=== PATIENT | male | born 1965 | race Caucasian/White ===

== ENCOUNTER 2017-08-23 08:49 | Observation (INO) ==
--- NOTE | 2017-08-23 09:22 | Emergency Department Note ---
[facility] [place] Clinical Impression: Left upper limb pain, Left upper extremity swelling, History of DVT (deep vein thrombosis) Disposition: Still a Patient Condition on Discharge: Fair Time of Disposition: 09:34 (To ER bed 8) Medical Decision Making - Carlos Inquiry Pt receiving controlled substance: No Vital Signs: 08/23/17 09:06 Temperature 98.2 F Temperature Source Oral Pulse Rate [Right Radial] 87 Respiratory Rate 18 Blood Pressure [Right Arm] 142/99 Blood Pressure Mean [Right Arm] 113 Blood Pressure Source [Right Arm] Automatic Cuff Blood Pressure Position [Right Arm] Sitting 02 Sat by Pulse Oximetry 99 Oxygen Delivery Method Room Air - Reevaluation(s) Time: 09:30 Reevaluation #1: Spoke to pt re: possible differentials and necessary workup. Agreeable to transfer to ER. Report called to GERALDO Armando RN. Bed 8 available. [facility] [place] - General Stated complaint: left arm swollen no accident Time Seen by Provider: 08/23/17 09:10 Mode of Arrival: Family Vehicle Source of Information: Patient Limitations: No Limitations Description of Symptoms (Recalled from Triage Doc. by RN): PT C/O PAIN AND SWELLING IN LEFT HAND SINCE TUESDAY. PT HAS HISTORY OF BLOOD CLOTS. HEENT Symptoms (Recalled from RN notes): No Resp Symptoms (Recalled from RN notes): No Skin Symptoms (Recalled from RN notes): No MS Symptoms (Recalled from RN notes): Yes (SWELLING AND PAIN IN LEFT HAND) Functional Status (Recalled from RN notes): NA - History of Present Illness Provider Complaint: c/o left hand/wrist pain and swelling. Woke up that way Tuesday. no known injury. 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 Denies hx of gout. Hx of DVT/PE approx 5 years ago. Supposed to take coumadin. Quit it due to lack of insurance. No PCP. Heat hasn't helped. Pain radiating throughout left arm now. Pain starting to get worse with ROM left elbow and left shoulder. Refusing to move left wrist due to pain. Finger ROM worsens wrist pain. Denies N /T. - Related Data Allergies Allergy/AdvReac Type Severity Reaction Status Date / Time No Known Allergies Allergy Verified 08/23/17 09:13 - Worker's Comp Is this a Worker's Comp case?: No [facility] History I have reviewed the patient's past medical history: Yes Medical History: Reports:: Deep Vein Thrombosis Denies:: Cancer, Diabetes Mellitus Type 1, Diabetes Mellitus Type 2, Hypertension, MRSA Laterality Cases: Right: Total Hip Replacement (1999) Amputation: No Fractures: No - Social History Smoking Status: Current every day smoker Tobacco Type: cigarettes Alcohol Intake: never - Psychiatric History Expresses thoughts of harming self/others: None Suicide Plan Description: No Plan ROS Obtained: Yes Systems reviewed as appropriate & no additional complaints - Constitutional Constitutional: Denies fatigue, Denies fever(s) - Cardiovascular Cardiovascular: Denies chest pain, Denies irregular heart rhythm - Respiratory Respiratory: No dyspnea - Musculoskeletal Musculoskeletal: Reports as per HPI - Integumentary/Breasts Skin/Breast: Denies change in skin color, Denies wounds - Neurologic Neurologic: Reports as per HPI Physical Exam - General General appearance: alert, other (appears uncomfortable, guarding left upper extremity against abdomen w/ elbow at 90 degrees) - Chest Chest inspection: Present: normal inspection, symmetric chest wall rise. Absent : tenderness - Respiratory Respiratory exam: Absent: respiratory distress - Cardiovascular Cardiovascular exam: Present: regular rate - Expanded Upper Extremity Exam Left Shoulder exam: Present: normal inspection, tenderness. Absent: full ROM Arm exam: Present: tenderness Elbow exam: Present: normal inspection, tenderness. Absent: full ROM Forearm/Wrist exam: Present: tenderness, swelling. Absent: full ROM Hand exam: Present: tenderness, swelling. Absent: full ROM Vascular exam: Normal: capillary refill, radial pulse (bounding) - Neurological Exam Neurological exam: Present: alert, oriented X3 - Skin Skin exam: Present: warm, dry, intact, normal color
--- NOTE | 2017-08-23 09:59 | Emergency Department Note ---
ED Disposition Clinical Impression: DVT of upper extremity (deep vein thrombosis) Qualifiers: Affected thrombotic vein of extremity: unspecified vein of extremity Chronicity : acute Laterality: left Qualified Code(s): I82.622 - Acute embolism and thrombosis of deep veins of left upper extremity Disposition: Still a Patient Condition on Discharge: Good - Critical Care Critical Care Time: No Attestation: On 08/23/17, the high probability of a clinically significant, sudden or life threatening deterioration of the following system(s) required my full and direct attention, intervention and personal management. The time I documented below is in addition to time spent performing reported procedures but includes the following listed in this critical care notation. Medical Decision Making - Carlos Inquiry Pt receiving controlled substance: Yes Carlos was queried for this patient: No Reason not queried -: Emergent pt cond-no time Risks and benefits of using a controlled substance: were not discussed with pt by me Vital Signs: 08/23/17 09:06 08/23/17 09:43 08/23/17 10:03 Temperature 98.2 F 99.0 F Temperature Source Oral Oral Pulse Rate [Right Radial] 87 110 H 72 Respiratory Rate 18 16 16 Blood Pressure [Right Arm] 142/99 100/88 116/82 Blood Pressure Mean [Right Arm] 113 92 93 Blood Pressure Source [Right Arm] Automatic Cuff Automatic Cuff Automatic Cuff Blood Pressure Position [Right Arm] Sitting Sitting Supine 02 Sat by Pulse Oximetry 99 97 98 Oxygen Delivery Method Room Air Room Air Room Air 08/23/17 12:49 Temperature 98.4 F Temperature Source Oral Pulse Rate [Right Radial] 68 Respiratory Rate 16 Blood Pressure [Right Arm] 118/66 Blood Pressure Mean [Right Arm] 83 Blood Pressure Source [Right Arm] Automatic Cuff Blood Pressure Position [Right Arm] Supine 02 Sat by Pulse Oximetry 98 Oxygen Delivery Method Room Air - Lab Data Lab Results 08/23/17 10:19: WBC 12.5 H, RBC 4.93, Hgb 14.8, Hct 45.2, MCV 91.7, MCH 30.0, MCHC 32.7, RDW 12.3, Plt Count 229, MPV 8.6, Neut % (Auto) 72.3, Lymph % (Auto) 20.5, [place] % (Auto) 5.7, Eos % (Auto) 1.2, Baso % (Auto) 0.2, Neut # (Auto) 9.0 H, Lymph # (Auto) 2.6, [place] # (Auto) 0.7, Eos # (Auto) 0.2, Baso # (Auto) 0.0 08/23/17 10:19: Sodium 137, Potassium 3.6, Chloride 102, Carbon Dioxide 25, Anion Gap 13.6, BUN 10, Creatinine 0.73, Estimated Creat Clear 129, Estimated GFR 113, Est GFR ( Amer) 137, Glucose 128 H, Calcium 8.5, Total Bilirubin 0.4, AST 8 L, ALT 16, Alkaline Phosphatase 97, Total Protein 7.7, Albumin 3.5, Globulin 4.2 H, Albumin/Globulin Ratio 0.8 L 08/23/17 10:19: ESR 30 H 08/23/17 10:19: Uric Acid 3.4 Result diagrams: 08/23/17 10:19 08/23/17 10:19 Orders (Tests/Meds): ED MEDICATIONS Discontinued Medications Generic Name Dose Route Start Last Admin Trade Name Freq PRN Reason Stop Dose Admin Ketorolac Tromethamine 30 mg 08/23/17 10:04 08/23/17 10:22 Toradol 30mg/Ml Vial IV 08/23/17 10:05 30 mg ONCE ONE Administration Morphine Sulfate 4 mg 08/23/17 12:55 08/23/17 12:56 Morphine 4mg/Ml Syringe IV 08/23/17 12:56 4 mg ONCE ONE Administration Ondansetron HCl 2 mg 08/23/17 12:52 08/23/17 12:58 Zofran 4mg/2ml Vial IV 08/23/17 12:53 Not Given ONCE ONE Ondansetron HCl 4 mg 08/23/17 12:52 08/23/17 12:56 Zofran 4mg/2ml Vial IV 08/23/17 12:53 4 mg ONCE ONE Administration Rivaroxaban 15 mg 08/23/17 12:12 08/23/17 12:45 Xarelto 15mg Tablet PO 08/23/17 12:13 15 mg ONCE ONE Administration ORDERS Category Date Time Status PSA Total+% Free Routine Lab 08/23/17 10:19 Received Medical Decision Narrative: 11:20 AM: Discussed with service on-call, Dr. Hobbs. He request consultation with Dr. Marinelli. I spoke with CRISTA Garcia, for Dr. Marinelli, will speak with Dr. Marinelli and call back. 12:00 PM: Patient seen by CRISTA Garcia, for Dr. Marinelli, they recommend admission, cancer workup, hypercoaguability profile, xarelto 12:15 PM: I have discussed the case with Dr. Hobbs who agrees to admit the patient to the hospital. We discussed the patient's clinical information, including history, exam, laboratory and radiology results and ED course. Per hospital procedure, I will write temporary bridge inpatient orders on the patient. Specific orders requested by the admitting physician: Consult Dr. Marinelli, follow recommendations as above There is not an order for hypercoagulability profile system for me to select. Laboratory called by me. They state that they have ordered the hypercoagulability profile. General Adult HPI - General Chief complaint: PAIN Stated complaint: left arm swollen no accident Time Seen by Provider: 08/23/17 09:10 Mode of Arrival: Ambulatory Limitations: Physical Limitations Description of Symptoms (Recalled from ER Triage Doc. by RN): left wrist/hand swollen and painful. pt had blood clots 5 years ago. is not on a blood thinner. Pos PMS to right hand - History of Present Illness HPI narrative: The patient states that on Tuesday 2 days ago he began having pain and swelling in his left thumb. Since then he has variously had pain in his elbow, shoulder , and now wrist. His arm feels swollen. No trauma or injury. No fevers or chills. No definite history of arthritis, although he thinks he may have been told in the past at one time that he had arthritis. He had a DVT in his ankle 5 years ago that broke off and went to his lung after knee surgery. He was on blood thinners for a year, but says that he stopped them due to loss of insurance. - Related Data Home Medications Medication Instructions Recorded Confirmed No Known Home Medications [No 08/23/17 08/23/17 Known Home Medications] Allergies Allergy/AdvReac Type Severity Reaction Status Date / Time No Known Allergies Allergy Verified 08/23/17 09:13 [facility] History I have reviewed the patient's past medical history: Yes Medical History: Reports:: Deep Vein Thrombosis Denies:: Cancer, Diabetes Mellitus Type 1, Diabetes Mellitus Type 2, Hypertension, MRSA Laterality Cases: Right: Total Hip Replacement (1999) Amputation: No Fractures: No - Social History Smoking Status: Current every day smoker Tobacco Type: cigarettes Alcohol Intake: never - Psychiatric History Expresses thoughts of harming self/others: None Suicide Plan Description: No Plan ROS Obtained: Yes All systems reviewed & no additional complaints - Constitutional Constitutional: Denies chills, Denies fever(s) - Musculoskeletal Musculoskeletal: Reports as per HPI, Reports joint pain - Neurologic Neurologic: Denies numbness, Denies weakness Physical Exam - General General appearance: alert, in no apparent distress, other (appears uncomfortable , guarding left upper extremity against abdomen w/ elbow at 90 degrees) - Respiratory Respiratory exam: Absent: respiratory distress - Cardiovascular Cardiovascular exam: Present: regular rate, normal rhythm - Expanded Upper Extremity Exam Left Comment: Diffuse tenderness left upper extremity, most tender around the wrist and hand. Mild edema around left wrist and hand. No erythema or heat. No definite effusions. Reduced range of motion of shoulder, elbow, wrist, and MCP joint of thumb. - Neurological Exam Neurological exam: Present: alert, oriented X3
[2017-08-23 10:36] LABS: Basophils % 0.2 % (0.1-2.0); Eosinophils # 0.2 K/mm3 (0.0-0.4); Eosinophils % 1.2 % (0.1-12.0); Hematocrit 45.2 % (42.0-52.0); Hemoglobin 14.8 g/dL (14.1-18.0); Lymphocytes # 2.6 K/mm3 (0.7-4.5); Lymphocytes % 20.5 K/mm3 (10-50); Mean Corpuscular HGB Conc 32.7 g/dL (31.8-35.4); Mean Corpuscular Volume 91.7 fl (80-94); Mean Platelet Volume 8.6 fl (7.4-10.4); Monocytes # 0.7 K/mm3 (0.1-1.0); Monocytes % 5.7 % (1.7-9.3); Neutrophils % 72.3 % (37.0-80.0); Platelet Count 229 K/mm3 (142-424); Red Blood Count 4.93 M/mm3 (4.60-6.20); Red Cell Distribution Width 12.3 % (11.5-17.5); White Blood Count 12.5 K/mm3 (4.8-10.8)
[2017-08-23 10:46] LABS: Albumin Level 3.5 gm/dL (3.4-5.0); Albumin/Globulin Ratio 0.8 (1.1-1.8); Anion Gap 13.6 mEq/L (5-15); Bilirubin,Total 0.4 mg/dL (0.2-1.0); Calcium 8.5 mg/dL (8.5-10.1); Globulin 4.2 gm/dl (1.3-3.2); Potassium 3.6 mmoL/L (3.5-5.1); Total Protein,Serum 7.7 gm/dL (6.4-8.2)
--- NOTE | 2017-08-23 11:24 | Non-Invasive Vascular Report ---
"Venous Exam Indications: 729.5 Pain in limb. 729.81 Swelling of limb. IMPRESSIONS 1. There is no evidence of significant reflux. 2. Deep vein thrombosis involving theaxillary and ,brachial,veins of the left upper extremity History: PMH: Deep vein thrombosis. Risk factors: Current tobacco use. Left upper extremity venous duplex. Doppler flow study including spectral analysis, color and gonzalez scale imaging. Location: Vascular laboratory. Patient status: Emergency department. CRITICAL FINDINGS - Reported to: NAEL - Read back and verified. - 08/23/17 - 1110 - DVT Tables: Venous flow and imaging: + + + + |Location |Overall |Flow properties | + + + + |Left internal jugular| |Normal phasicity; spontaneous;| | | |compressible | + + + + |Left subclavian | |Normal phasicity; spontaneous;| | | |normal augmentation; | | | |compressible | + + + + |Left axillary |Partially occluded|Diminished phasicity; not | | | |spontaneous; diminished | | | |augmentation; partially | | | |compressible | + + + + |Left brachial |Partially occluded|Diminished phasicity; not | | | |spontaneous; diminished | | | |augmentation; partially | | | |compressible | + + + + |Left cephalic | |Normal phasicity; spontaneous;| | | |normal augmentation; | | | |compressible | + + + + |Left basilic | |Normal phasicity; spontaneous;| | | |normal augmentation; | | | |compressible | + + + + |Left radial | |Compressible | + + + + |Left ulnar | |Compressible | + + + + |Right subclavian | |Normal phasicity; spontaneous;| | | |normal augmentation; | | | |compressible | + + + + (Report amended ) Electronically signed by: Beto Centeno [id number]"
--- NOTE | 2017-08-23 11:58 | Consult Report ---
History of Present Illness Consult date: 08/23/17 Requesting physician: Cathleen Hobbs Chief complaint: Left arm pain Additional Medical History:: 1. Tobacco use, 3 ppd 2. History of DVT of leg and PE prior to surgery about 2012 3. History of infected right hip requiring surgery 4. Questionable FH of coagulation disorder with brother on coumadin also. History of present illness: 52-year-old white male with history of tobacco use and previous DVT/PE approximately 5 years ago presented to the emergency department with a 5 day history of left upper extremity pain. Venous ultrasound was performed confirming axillary and brachial DVT. Cardiology consulted for evaluation and recommendations. Patient does smoke 3 packs per day. He denies any recent surgery or trauma to the left arm. He previously took Coumadin for about a year but then stopped it on his own when he lost his insurance. He denies any history of cancer, recent weight loss, symptoms of hemoptysis, hematuria or melena. He is not on any medications consistently. [facility] History Medical History: Reports:: Deep Vein Thrombosis Denies:: Cancer, Diabetes Mellitus Type 1, Diabetes Mellitus Type 2, Hypertension, MRSA Laterality Cases: Right: Total Hip Replacement (1999) Amputation: No Fractures: No - *Social History Smoking Status: Current every day smoker Tobacco Type: cigarettes Alcohol Intake: never - Psychiatric History Expresses thoughts of harming self/others: None Suicide Plan Description: No Plan Meds Home Medications Medication Instructions Recorded Confirmed Type No Known Home Medications [No 08/23/17 08/23/17 History Known Home Medications] Allergies Allergy/AdvReac Type Severity Reaction Status Date / Time No Known Allergies Allergy Verified 08/23/17 09:13 Review of Systems - *Cardiovascular Denies chest pain - *Respiratory Reports shortness of breath with activity - *Gastrointestinal Denies abdominal pain, Denies bright, red blood in stools, Denies loose stools, Denies black, tarry stools - *Genitourinary Denies decreased urination - *Neurologic Denies numbness, Denies weakness Exam Vital signs and Labs for Last 24 Hours: Temp Pulse Resp BP Pulse Ox 99.0 F 110 H 16 100/88 97 08/23/17 09:43 08/23/17 09:43 08/23/17 09:43 08/23/17 09:43 08/23/17 09:43 Laboratory Results - last 24 hr 08/23/17 10:19: WBC 12.5 H, RBC 4.93, Hgb 14.8, Hct 45.2, MCV 91.7, MCH 30.0, MCHC 32.7, RDW 12.3, Plt Count 229, MPV 8.6, Neut % (Auto) 72.3, Lymph % (Auto) 20.5, [place] % (Auto) 5.7, Eos % (Auto) 1.2, Baso % (Auto) 0.2, Neut # (Auto) 9.0 H, Lymph # (Auto) 2.6, [place] # (Auto) 0.7, Eos # (Auto) 0.2, Baso # (Auto) 0.0 08/23/17 10:19: Sodium 137, Potassium 3.6, Chloride 102, Carbon Dioxide 25, Anion Gap 13.6, BUN 10, Creatinine 0.73, Estimated Creat Clear 129, Estimated GFR 113, Est GFR ( Amer) 137, Glucose 128 H, Calcium 8.5, Total Bilirubin 0.4, AST 8 L, ALT 16, Alkaline Phosphatase 97, Total Protein 7.7, Albumin 3.5, Globulin 4.2 H, Albumin/Globulin Ratio 0.8 L 08/23/17 10:19: ESR 30 H 08/23/17 10:19: Uric Acid 3.4 I & O for Last 24 hours: Intake & Output 08/20/17 08/21/17 08/22/17 08/23/17 11:59 11:59 11:59 11:59 Weight 170 lb - *Routine Neck Exam Absent: JVD, carotid bruit - *Routine Respiratory Exam Present: CTA bilaterally - *Routine Cardiovascular Exam Present: RRR. Absent: murmur, gallop - *Routine Abdominal Exam Present: soft. Absent: tenderness - *Routine Extremities Exam Comments: Swelling of the right hand noted compared with the left. - *Routine Neurological Exam Present: alert, oriented X3, moving all extremities Assessment and Plan (1) Deep venous thrombosis of left upper extremity Current visit: Yes Status: Acute Category: Medical Code(s): I82.622 - Acute embolism and thrombosis of deep veins of left upper extremity (2) Tobacco use disorder, continuous Current visit: Yes Status: Acute Category: Medical Code(s): F17.209 - Nicotine dependence, unspecified, with unspecified nicotine-induced disorders (3) History of DVT (deep vein thrombosis) Current visit: Yes Status: Acute Category: Medical Code(s): Z86.718 - Personal history of other venous thrombosis and embolism (4) Left upper extremity swelling Current visit: Yes Status: Acute Category: Medical Code(s): M79.89 - Other specified soft tissue disorders (5) Left upper limb pain Current visit: Yes Status: Acute Category: Medical Code(s): M79.602 - Pain in left arm - Assessment and plan all Dx Assessment and Plan for all problems:: 1. Recommend starting Xarelto 15 mg twice daily for 2 weeks and then continuing with Xarelto 20 mg daily for at least 6 months. 2. Recommend admission for workup to include cancer screening and for pain medication. Recommend no use of the left arm for 1 week. 3. Hypercoagulable workup to include activated protein C resistance, prothrombin [id number] mutation testing, anti-thrombin, protein C and protein S activity, factor VIII activity level, screening tests for lupus anticoagulants, anticardiolipin antibody testing by [facility] and fasting total plasma homocystine level.
--- NOTE | 2017-08-23 15:31 | History & Physical Report ---
*Admission Date: 08/23/17 *Chief complaint: left arm pain *History of present illness: Mr Fink is a 52-year-old white male with history of tobacco use and previous DVT/PE approximately 5 years ago who presented to the emergency department with a 5 day history of left upper extremity pain. Venous ultrasound was performed confirming axillary and brachial DVT. Patient does smoke 3 packs per day. He denies any recent surgery or trauma to the left arm. He previously took Coumadin for about a year but then stopped it on his own when he lost his insurance. He denies any history of cancer, recent weight loss, symptoms of hemoptysis, hematuria or melena. He is not on any medications consistently. [facility] History Medical History: Reports:: Deep Vein Thrombosis, Pulmonary Embolism Denies:: Atherosclerotic Heart Disease, Cancer, Congestive Heart Failure, Diabetes Mellitus Type 1, Diabetes Mellitus Type 2, Gastroesophageal Reflux Disease(GERD), Gastrointestinal Bleed, Hypertension, MRSA Other Medical History: Denies: Anemia, Arthritis Laterality Cases: Right: Total Hip Replacement, Other Other Surgeries: Yes: Other ("SCRAPING" R HIP R/T INFECTION) Amputation: No Fractures: No - *Social History Educational Level: Attended Grade School Smoking Status: Current every day smoker Tobacco Type: cigarettes # Packs/Day (cigarettes): 3 #Yrs smoked (if former smoker): 38 Alcohol Intake: never Occupational Status: employed Housing: house Household Members: none - Psychiatric History Expresses thoughts of harming self/others: None Suicide Plan Description: No Plan *Family Hx:: Diabetes, Heart Attack, Hyperlipidemia, Hypertension Review of Systems - Constitutional Denies body ache(s), Denies fever(s), Denies headache(s) - ENT Denies dizziness, Denies ear pain, Denies nasal congestion, Denies sore throat - *Cardiovascular Denies chest pain, Denies shortness of breath Comments: swelling of the left arm - *Respiratory Denies chest congestion, Denies cough, Denies shortness of breath - *Gastrointestinal Denies abdominal pain, Denies change in bowel habits, Denies change in stools, Denies constipation, Denies heartburn, Denies nausea, Denies vomiting - *Genitourinary Denies painful urination, Denies blood in urine - *Musculoskeletal Reports other (left arm pain), Denies abnormal walking, Denies body aches - *Neurologic Denies numbness, Denies weakness Meds Home Medications Medication Instructions Recorded Confirmed Type No Known Home Medications [No 08/23/17 08/23/17 History Known Home Medications] Allergies Allergy/AdvReac Type Severity Reaction Status Date / Time No Known Allergies Allergy Verified 08/23/17 09:13 Exam Vital signs and Labs for Last 24 Hours: Temp Pulse Resp BP Pulse Ox 98.4 F 78 18 118/66 99 08/23/17 13:38 08/23/17 13:38 08/23/17 13:38 08/23/17 13:38 08/23/17 13:21 Laboratory Tests 08/23/17 08/23/17 08/23/17 10:19 10:19 10:19 WBC 12.5 H Hgb 14.8 Hct 45.2 MCV 91.7 MCH 30.0 MCHC 32.7 Neut % (Auto) 72.3 Lymph % (Auto) 20.5 [place] % (Auto) 5.7 ESR 30 H Sodium 137 Potassium 3.6 Chloride 102 Carbon Dioxide 25 Anion Gap 13.6 BUN 10 Creatinine 0.73 Glucose 128 H Uric Acid Calcium 8.5 Total Bilirubin 0.4 AST 8 L ALT 16 Alkaline Phosphatase 97 Total Protein 7.7 Albumin 3.5 08/23/17 10:19 WBC Hgb Hct MCV MCH MCHC Neut % (Auto) Lymph % (Auto) [place] % (Auto) ESR Sodium Potassium Chloride Carbon Dioxide Anion Gap BUN Creatinine Glucose Uric Acid 3.4 Calcium Total Bilirubin AST ALT Alkaline Phosphatase Total Protein Albumin I & O for Last 24 hours: Intake & Output 08/21/17 08/22/17 08/23/17 08/24/17 11:59 11:59 11:59 11:59 Weight 161 lb 2.985 oz Radiology Reports for the Last 24 Hours: 08/23/17 Venous study of left upper arm IMPRESSIONS 1. There is no evidence of significant reflux. 2. Deep vein thrombosis involving theaxillary and ,brachial,veins of the left upper extremity 08/23/17 CXR IMPRESSION: Negative chest, no acute finding - Constitutional no acute distress - *Routine HEENT Exam Head: Present: normocephalic, atraumatic Eye: Present: PERRL ENT: Present: mucous membranes moist, oropharynx clear Comments: coated tongue - *Routine Neck Exam Present: supple, full ROM. Absent: carotid bruit, lymphadenopathy, thyromegaly - *Routine Respiratory Exam Present: CTA bilaterally (A&P), diminished air movement (posteriorly) - *Routine Cardiovascular Exam Present: RRR - *Routine Abdominal Exam Present: soft, normoactive bowel sounds. Absent: tenderness - *Routine Extremities Exam Present: edema (left arm; TTP). Absent: calf tenderness - *Routine Neurological Exam Present: alert, oriented X3 Assessment and Plan (1) Deep venous thrombosis of left upper extremity Current visit: Yes Status: Acute Category: Medical Code(s): I82.622 - Acute embolism and thrombosis of deep veins of left upper extremity (2) Tobacco use disorder, continuous Current visit: Yes Status: Acute Category: Medical Code(s): F17.209 - Nicotine dependence, unspecified, with unspecified nicotine-induced disorders - Assessment and plan all Dx Assessment and Plan for all problems:: has been started on xarelto; will give tylenol prn pain and add a heating pad for the pain; he does not want a nicotine patch at this time
--- NOTE | 2017-08-24 07:14 | Pharmacy Consult Notes ---
[facility] Pharmacy VTE Monitoring - Patient Demographics Admission date: 08/23/17 Report Date: 08/24/17 Time: 07:13 Allergies/Adverse Reactions: Patient Allergies No Known Allergies Allergy (Verified 08/23/17 09:13) Height: 1.78 m Weight: 73.113 kg Patient Problems: Current Active Problems Deep venous thrombosis of left upper extremity (Acute) Tobacco use disorder, continuous (Acute) DVT of upper extremity (deep vein thrombosis) (Acute) - VTE Risk Labs: VTE Related Lab Results Hgb 14.8 g/dL (14.1-18.0) 08/23/17 10:19 Hct 45.2 % (42.0-52.0) 08/23/17 10:19 Plt Count 229 K/mm3 (142-424) 08/23/17 10:19 BUN 10 mg/dL (7-18) 08/23/17 10:19 Creatinine 0.73 mg/dL (0.70-1.30) 08/23/17 10:19 Estimated Creat Clear 129 mL/min (0-300) 08/23/17 10:19 Was VTE Risk Assessment Performed: Yes VTE Score: 4 VTE Risk Level: Low Risk Clinical Trial Participant: No - Prophylaxis VTE Prophylaxis Ordered?: Yes Types of VTE Prophylaxis: TEDS Knee High, Pharmacological Pharmacologic Type: Other (xarelto) - VTE Diagnosis Confirmed Treatment or plan recommended: Other (xarelto started) Warfarin counseling provided if indicated?: No (coumadin not started) Bridge therapy started inpt?: Yes (xarelto)
[2017-08-24 08:22] VITALS: BP 114/67
--- NOTE | 2017-08-24 08:23 | Progress Note ---
Internal Medicine - PN: Subj *Date: 08/24/17 *Time: 08:20 Interval history: States pain in left arm is better this a.m. Slept some. Eating without difficulty. Wanting to go home. States he needs to smoke. Exam Vital signs and Labs for Last 24 Hours: Temp Pulse Resp BP Pulse Ox 98.5 F 82 16 104/70 95 08/24/17 04:00 08/24/17 04:00 08/24/17 04:00 08/24/17 04:00 08/24/17 04:00 I & O for Last 24 hours: Intake & Output 08/21/17 08/22/17 08/23/17 08/24/17 11:59 11:59 11:59 11:59 Intake Total 480 / 480 Output Total 400 / 400 Balance 80 / 80 Weight 161 lb 3 oz - Constitutional no acute distress - *Routine Respiratory Exam Comments: Diminished breath sounds posteriorly - *Routine Cardiovascular Exam Present: RRR - *Routine Extremities Exam Absent: edema, calf tenderness Comments: Left arm and hand with much less edema. Also less tenderness. No leg edema. - *Routine Neurological Exam Present: alert, oriented X3 Assessment and Plan (1) Deep venous thrombosis of left upper extremity Current visit: Yes Status: Acute Category: Medical Code(s): I82.622 - Acute embolism and thrombosis of deep veins of left upper extremity (2) Tobacco use disorder, continuous Current visit: Yes Status: Acute Category: Medical Code(s): F17.209 - Nicotine dependence, unspecified, with unspecified nicotine-induced disorders (3) History of DVT (deep vein thrombosis) Current visit: Yes Category: Medical Code(s): Z86.718 - Personal history of other venous thrombosis and embolism (4) Left upper extremity swelling Current visit: Yes Category: Medical Code(s): M79.89 - Other specified soft tissue disorders (5) Left upper limb pain Current visit: Yes Category: Medical Code(s): M79.602 - Pain in left arm
[2017-08-24 08:48] LABS: Basophils % 0.4 % (0.1-2.0); Eosinophils # 0.2 K/mm3 (0.0-0.4); Eosinophils % 2.7 % (0.1-12.0); Hematocrit 40.4 % (42.0-52.0); Lymphocytes # 1.7 K/mm3 (0.7-4.5); Lymphocytes % 22.8 K/mm3 (10-50); Mean Corpuscular HGB Conc 32.8 g/dL (31.8-35.4); Mean Corpuscular Hemoglobin 29.8 pg (27.0-31.2); Mean Corpuscular Volume 90.7 fl (80-94); Mean Platelet Volume 8.1 fl (7.4-10.4); Monocytes # 0.4 K/mm3 (0.1-1.0); Monocytes % 5.7 % (1.7-9.3); Neutrophils % 68.3 % (37.0-80.0); Platelet Count 190 K/mm3 (142-424); Red Blood Count 4.45 M/mm3 (4.60-6.20); Red Cell Distribution Width 12.3 % (11.5-17.5); White Blood Count 7.3 K/mm3 (4.8-10.8)
[2017-08-24 08:55] LABS: Hemoglobin 13.4 g/dL (14.1-18.0)
--- NOTE | 2017-08-24 13:15 | Progress Note ---
Subjective Date: 08/24/17 Time: 10:30 Principal diagnosis: LUE DVT Interval history: LUE pain and swelling has improved. Pt wants to go home. Hypercoagulable labs have been drawn and will be resulted later. CXR without suspicious nodules. Tolerating Xarelto without bleeding. Exam Vital signs and Labs for Last 24 Hours: Temp Pulse Resp BP Pulse Ox 97.7 F 72 16 114/67 94 L 08/24/17 08:00 08/24/17 08:00 08/24/17 08:00 08/24/17 08:00 08/24/17 08:00 Laboratory Results - last 24 hr 08/24/17 08:29: WBC 7.3 D, RBC 4.45 L, Hgb 13.4 L, Hct 40.4 L, MCV 90.7, MCH 29.8, MCHC 32.8, RDW 12.3, Plt Count 190, MPV 8.1, Neut % (Auto) 68.3, Lymph % ( Auto) 22.8, [place] % (Auto) 5.7, Eos % (Auto) 2.7, Baso % (Auto) 0.4, Neut # (Auto ) 5.0, Lymph # (Auto) 1.7, [place] # (Auto) 0.4, Eos # (Auto) 0.2, Baso # (Auto) 0.0 I & O for Last 24 hours: Intake & Output 08/22/17 08/23/17 08/24/17 08/25/17 11:59 11:59 11:59 11:59 Intake Total 720 / 720 Output Total 400 / 400 Balance 320 / 320 Weight 161 lb 3 oz - *Routine Respiratory Exam Present: CTA bilaterally - *Routine Cardiovascular Exam Present: RRR Progress Note: A&P (1) Deep venous thrombosis of left upper extremity Status: Acute Current Visit: Yes (2) Tobacco use disorder, continuous Status: Acute Current Visit: Yes (3) History of DVT (deep vein thrombosis) Current Visit: Yes (4) Left upper extremity swelling Current Visit: Yes (5) Left upper limb pain Current Visit: Yes Assessment and Plan for All Diagnoses:: OK for discharge home from cardiology standpoint. Will give samples of Xarelto 15 mg BID for 2 wks. Follow up in our office in one week.
--- NOTE | 2017-08-24 15:16 | Discharge Summary ---
General - General Admission date: 08/23/17 Discharge date: 08/24/17 HPI HPI: Mr Fink is a 52-year-old white male with history of tobacco use and previous DVT/PE approximately 5 years ago who presented to the emergency department with a 5 day history of left upper extremity pain. Venous ultrasound was performed confirming axillary and brachial DVT. Patient does smoke 3 packs per day. He denies any recent surgery or trauma to the left arm. He previously took Coumadin for about a year but then stopped it on his own when he lost his insurance. He denies any history of cancer, recent weight loss, symptoms of hemoptysis, hematuria or melena. He is not on any medications consistently. Hospital Course Hospital Course: The patient was started on xarelto and was given tylenol and a heating pad for the pain. Cardiology saw the patient and recommended starting Xarelto 15 mg twice daily for 2 weeks and then continuing with Xarelto 20 mg daily for at least 6 months. They recommended no use of the left arm for 1 week and a hypercoagulable workup to include activated protein C resistance, prothrombin [id number] mutation testing, anti-thrombin, protein C and protein S activity, factor VIII activity level, screening tests for lupus anticoagulants, anticardiolipin antibody testing by [facility] and fasting total plasma homocystine level. His LUE pain and swelling improved. Hypercoagulable labs have been drawn and will be resulted later. A CXR showed no suspicious nodules. He was tolerating Xarelto without bleeding and was stable to be discharged home. Objective Vital signs: Temp Pulse Resp BP Pulse Ox 97.7 F 72 16 114/67 94 L 08/24/17 08:00 08/24/17 08:00 08/24/17 08:00 08/24/17 08:00 08/24/17 08:00 Narrative: - Constitutional no acute distress - *Routine HEENT Exam Head: Present: normocephalic, atraumatic Eye: Present: PERRL ENT: Present: mucous membranes moist, oropharynx clear Comments: coated tongue - *Routine Neck Exam Present: supple, full ROM. Absent: carotid bruit, lymphadenopathy, thyromegaly - *Routine Respiratory Exam Present: CTA bilaterally (A&P), diminished air movement (posteriorly) - *Routine Cardiovascular Exam Present: RRR - *Routine Abdominal Exam Present: soft, normoactive bowel sounds. Absent: tenderness - *Routine Extremities Exam Present: edema (left arm; TTP). Absent: calf tenderness - *Routine Neurological Exam Present: alert, oriented X3 Results Labs on day of discharge: Labs from last 24 hours 08/24/17 08:29 WBC 7.3 D RBC 4.45 L Hgb 13.4 L Hct 40.4 L MCV 90.7 MCH 29.8 MCHC 32.8 RDW 12.3 Plt Count 190 MPV 8.1 Neut % (Auto) 68.3 Lymph % (Auto) 22.8 [place] % (Auto) 5.7 Eos % (Auto) 2.7 Baso % (Auto) 0.4 Neut # (Auto) 5.0 Lymph # (Auto) 1.7 [place] # (Auto) 0.4 Eos # (Auto) 0.2 Baso # (Auto) 0.0 DS: Diagnosis - Discharge Diagnosis (1) Deep venous thrombosis of left upper extremity Status: Acute (2) Tobacco use disorder, continuous Status: Chronic Discharge Plan - Patient Discharge Instructions ACTIVITY: Limited activity DIET: continue same diet Additional Instructions: recommend D/C smoking Patient Instructions: Deep Vein Thrombosis - Follow up Plan Follow up with: Fabian Marinelli MD [Staff Physician] - Disposition: Home, Self-Care Prescriptions/Medication Reconciliation: New Acetaminophen [Acetaminophen 325mg tab] 650 mg PO Q6HP PRN tablet PRN Reason: MODERATE PAIN Rivaroxaban [Xarelto 15mg tablet] 15 mg PO BID #60 tablet
[2017-08-25 14:16] LABS: Anti-Smith Antibody <0.2 AI (0.0-0.9)
[2017-08-25 21:49] LABS: Anti-Cardio Antibody IgM 12 MPL U/mL (0-12); Anti-Cardiolipin Antibody IgG <9 GPL U/mL (0-14)
[2017-08-26 03:06] LABS: Protein S Antigen, Total 61 % (60-150)
[2017-08-30 08:46] LABS: Protein C Antigen 85 % (60-150)
== END 2017-08-24 14:50 | disposition home or self-care (01) ==
LOC: UTC 08:49 → 2ND 08:49
PROVIDERS: ADMIT Family Medicine; ATTEND Family Medicine

== ENCOUNTER 2019-12-23 03:46 | Emergency (ER) | payer MEDICAID, SELFPAY ==
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
--- NOTE | 2019-12-23 04:07 | PC.NURSE ---
rad notified of scans. waiting lab results for iv contrast.
[2019-12-23 04:09] VITALS: BP 130/82; BP 142/94; PULSE 82; PULSE 93; RESP 16; RESP 18; TEMP 36.6; O2SAT 95
--- NOTE | 2019-12-23 04:15 | PC.NURSE ---
to rad via stretcher
[2019-12-23 04:21] LABS: Basophils # 0.1 K/mm3 (0-0.2); Basophils % 0.4 % (0.1-2.0); Eosinophils # 0.5 K/mm3 (0.0-0.4); Eosinophils % 4.6 % (0.1-12.0); Hematocrit 45.9 % (42.0-52.0); Hemoglobin 14.8 g/dL (14.1-18.0); Lymphocytes # 3.3 K/mm3 (0.7-4.5); Lymphocytes % 27.9 % (10-50); Mean Corpuscular HGB Conc 32.2 g/dL (31.8-35.4); Mean Corpuscular Volume 96.4 fl (80-94); Mean Platelet Volume 7.9 fl (7.4-10.4); Monocytes # 0.7 K/mm3 (0.1-1.0); Monocytes % 6.3 % (1.7-9.3); Neutrophils # 7.1 K/mm3 (1.8-7.8); Neutrophils % 60.7 % (37.0-80.0); Platelet Count 240 K/mm3 (142-424); Red Blood Count 4.76 M/mm3 (4.60-6.20); Red Cell Distribution Width 14.2 % (11.5-17.5); White Blood Count 11.7 K/mm3 (4.8-10.8)
[2019-12-23 04:22] LABS: Alanine Aminotransferase 23 U/L (12-78); Albumin Level 4.3 g/dl (3.5-5.0); Alkaline Phosphatase 87 U/L (38-126); Anion Gap 12.1 mEq/L (5-15); Aspartate Amino Transferase 25 U/L (17-59); Bilirubin,Direct 0.1 mg/dl (0.0-0.4); Bilirubin,Indirect 0.2 mg/dL (0.0-0.9); Bilirubin,Total 0.3 mg/dl (0.2-1.3); Bilirubin,Unconjugated 0.2 mg/dL (0.0-1.1); Blood Urea Nitrogen 14 mg/dl (9-20); Calcium 9.2 mg/dl (8.4-10.2); Carbon Dioxide 32 mmol/L (22.0-30.0); Chloride 101 mmol/L (98-107); Creatinine Clearance Estimated 132 mL/min (50-200); Estimated Glomerular Filt Rate 101 ml/min (>60); GFR (African American) 122 ML/MIN (>60); Glucose 149 mg/dl (74-100); Potassium 4.1 mmoL/L (3.5-5.1); Sodium 141 mmol/L (136-145); Total Protein,Serum 7.6 g/dl (6.3-8.2)
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
[2019-12-23 04:25] LABS: INR 2.34 (0.9-1.1); Prothrombin Time 22.8 seconds (9.4-11.8)
--- NOTE | 2019-12-23 05:01 | PC.NURSE ---
return to unit via radiology nurse and stretcher
[2019-12-23 05:02] VITALS: BP 144/90; PULSE 78; RESP 18; O2SAT 97
[2019-12-23 05:32] LABS: Microscopic, Urine URINE MICROSCOPIC (MICROSCOPIC)
[2019-12-23 05:34] LABS: Appearance,Urine CLEAR (Clear); Bilirubin,Urine Negative (Negative); Blood, Urine 1+ (Negative); Color,Urine YELLOW (Yellow); Glucose,Urine (UA) Negative (Negative); Ketones,Urine Negative (Negative); Leukocyte Esterase,Urine Negative (Negative); Nitrate,Urine Negative (Negative); Protein,Urine Negative (Negative); Urobilinogen,Urine 0.2 EU/dl (0.2)
[2019-12-23 05:35] LABS: Amorphous Sediment,Urine Trace /lpf
[2019-12-23 05:45] VITALS: BP 130/91; PULSE 71; RESP 18; O2SAT 94
--- NOTE | 2019-12-23 05:46 | [facility].EDTRAUMA ---
ED Disposition Clinical Impression: Trauma, blunt Rib fractures Qualifiers: Encounter type: initial encounter Rib fracture type: multiple ribs Fracture type: closed Laterality: left Qualified Code(s): S22.42XA - Multiple fractures of ribs, left side, initial encounter for closed fracture Disposition: Home, Self-Care Condition on Discharge: Good Instructions: DI for Rib Fracture Additional Instructions: use meds and see pcp for follow up Referrals: PCP,No [Primary Care Provider] - - Critical Care Critical Care Time: No Attestation: On 12/23/19, the high probability of a clinically significant, sudden or life threatening deterioration of the following system(s) required my full and direct attention, intervention and personal management. The time I documented below is in addition to time spent performing reported procedures but includes the following listed in this critical care notation. Medical Decision Making - Medical Records Medical records reviewed: Yes: I reviewed the patient's medical records. - Carlos Inquiry Pt receiving controlled substance: No Vital Signs: 12/23/19 03:55 12/23/19 04:09 12/23/19 05:02 Temperature 97.8 F 97.8 F Temperature Source Oral Oral Pulse Rate [Right Brachial] 67 82 78 Respiratory Rate 16 18 18 Blood Pressure [Right Arm] 138/80 142/94 H 144/90 H Blood Pressure Mean [Right Arm] 99 110 108 Blood Pressure Source [Right Arm] Manual Cuff/ Auscultation Manual Cuff/ Auscultation Blood Pressure Position [Right Arm] Sitting Sitting 02 Sat by Pulse Oximetry 98 95 97 Oxygen Delivery Method Room Air Room Air Room Air 12/23/19 05:45 Temperature Temperature Source Pulse Rate [Right Brachial] 71 Respiratory Rate 18 Blood Pressure [Right Arm] 130/91 H Blood Pressure Mean [Right Arm] 104 Blood Pressure Source [Right Arm] Blood Pressure Position [Right Arm] 02 Sat by Pulse Oximetry 94 L Oxygen Delivery Method Room Air - Lab Data Lab results reviewed: Yes: I reviewed the patient's lab results. Lab Results 12/23/19 03:58: WBC 11.7 H, RBC 4.76, Hgb 14.8, Hct 45.9, MCV 96.4 H, MCH 31.0, MCHC 32.2, RDW 14.2, Plt Count 240, MPV 7.9, Neut % (Auto) 60.7, Lymph % (Auto) 27.9, [place] % (Auto) 6.3, Eos % (Auto) 4.6, Baso % (Auto) 0.4, Neut # (Auto) 7.1, Lymph # (Auto) 3.3, [place] # (Auto) 0.7, Eos # (Auto) 0.5 H, Baso # (Auto) 0.1 12/23/19 03:58: PT 22.8 H, INR 2.34 H 12/23/19 03:58: Sodium 141, Potassium 4.1, Chloride 101, Carbon Dioxide 32 H, Anion Gap 12.1, BUN 14, Creatinine 0.80, Estimated Creat Clear 132, Estimated GFR 101, Est GFR ( Amer) 122, Glucose 149 H, Calcium 9.2, Total Bilirubin 0.3, Direct Bilirubin 0.1, Conjugated Bilirubin 0.0, Indirect Bilirubin 0.2, Unconjugated Bilirubin 0.2, AST 25, ALT 23, Alkaline Phosphatase 87, Total Protein 7.6, Albumin 4.3 12/23/19 05:20: Urine Color Yellow, Urine Appearance Clear, Urine pH 7.0, Ur Specific [place] 1.010, Urine Protein Negative, Urine Glucose (UA) Negative, Urine Ketones Negative, Urine Blood 1+, Urine Nitrate Negative, Urine Bilirubin Negative, Urine Urobilinogen 0.2, Ur Leukocyte Esterase Negative, Urine RBC 3-5, Amorphous Sediment Trace Result diagrams: 12/23/19 03:58 12/23/19 03:58 Orders (Tests/Meds): ED MEDICATIONS Discontinued Medications Generic Name Dose Route Start Last Admin Trade Name Freq PRN Reason Stop Dose Admin Ioversol 100 ml 12/23/19 05:07 12/23/19 05:09 Rad-Optiray 350 100ml Vial IV 12/23/19 05:08 100 ml ONCE ONE Administration Protocol Sodium Chloride 40 ml 12/23/19 05:07 12/23/19 05:09 Rad-Ns 50ml Vial IV 12/23/19 05:08 40 ml ONCE ONE Administration Sodium Chloride 10 ml 12/23/19 05:07 12/23/19 05:09 Rad-Saline Flush 10ml Syringe IV 12/23/19 05:08 10 ml ONCE ONE Administration ORDERS Category Date Time Status CT abdomen pelvis w con Stat Cat Scan 12/23/19 04:[address] angio chest Stat Cat Scan 12/23/19 04:[address] cervic
--- NOTE | 2019-12-23 05:54 | PC.NURSE ---
verbal orders for tylenol /codeine thp. paged respiratory for IS teaching.
[2019-12-23 05:56] VITALS: BP 130/90; PULSE 69; RESP 18; TEMP 36.6; O2SAT 94
[2019-12-23 06:00] VITALS: BP 126/94; PULSE 88; RESP 18; O2SAT 94
--- NOTE | 2019-12-23 06:01 | PC.NURSE ---
rt at bedside performing is teaching.
[2020-02-04 13:12] LABS: POC Glucose,Bedside 150 (70-110)
== END 2019-12-23 06:07 | disposition home or self-care (01) ==
PROVIDERS: Emergency Provider Emergency Medicine
DX: S22.42XA Multiple fractures of ribs, left side, initial encounter for closed fracture (principal); V85.5XXA Driver of special construction vehicle injured in nontraffic accident, initial encounter; Y92.89 Other specified places as the place of occurrence of the external cause; Z96.641 Presence of right artificial hip joint; F17.210 Nicotine dependence, cigarettes, uncomplicated; Z86.711 Personal history of pulmonary embolism; R73.9 Hyperglycemia, unspecified
CPT/HCPCS: 70450; 71045; 71275; 72125; 72170; 73030; 74177; 80048; 80076; 81001; 82962; 85025; 85610; 99282; 99291; Q9967

== ENCOUNTER 2021-03-14 21:06 | Emergency (ER) | payer SELFPAY ==
[2021-03-14 21:08] VITALS: BP 154/90; PULSE 102; RESP 16; TEMP 37.4; O2SAT 96; BMI 25.0
--- NOTE | 2021-03-14 21:28 | XR_ITS ---
PROCEDURE INFORMATION: Exam: XR Right Wrist Exam date and time: 03/14/2021 9:28 PM Age: 55 years old Clinical indication: Pain; Wrist; Right; Additional info: Swelling, pain no known trauma TECHNIQUE: Imaging protocol: XR Right wrist. Views: 3 or more views. COMPARISON: No relevant prior studies available. FINDINGS: Bones/joints: There is subtle stippled calcification just proximal to the right lunate and triquetrum. This could represent calcification of triangular fibrocartilage. No evidence of acute fracture. There is no evidence of significant degenerative change. Soft tissues: Prominent soft tissue swelling about the right wrist. IMPRESSION: 1. Dystrophic calcification noted between the distal ulna, the lunate, and triquetrum, as described. This could represent calcification of triangular fibrocartilage. 2. Prominent soft tissue swelling about the right wrist.
[2021-03-14 21:30] VITALS: BP 128/80; PULSE 96; O2SAT 95
--- NOTE | 2021-03-14 21:35 | HMH.EDGENADL ---
ED Disposition Clinical Impression: Monoarticular arthritis Wrist pain Qualifiers: Laterality: right Qualified Code(s): M25.531 - Pain in right wrist Disposition: Home, Self-Care Condition on Discharge: Fair Instructions: DI for Gout, DI for Osteoarthritis Additional Instructions: You have been evaluated for right wrist pain. Likely due to overuse, tendinitis, inflammatory arthritis. Please trial naproxen twice daily. Dr. Snell will call you tomorrow to discuss synovial fluid results. It is possible that you have an infectious arthritis that would require IV antibiotics and admission to the hospital. Return to the emergency department for worsening pain, redness, swelling, fevers, chills, other concerns. Prescriptions: Naproxen [Naproxen 500mg tab] 500 mg PO BID #30 tab Transmission Status: Received by [employer] #[id number] Referrals: Provider,MD Lesli [Primary Care Provider] - Huber Snell MD [Staff Physician] - Time of Disposition: 22:52 - Critical Care Critical Care Time: No Attestation: On 03/14/21, the high probability of a clinically significant, sudden or life threatening deterioration of the following system(s) required my full and direct attention, intervention and personal management. The time I documented below is in addition to time spent performing reported procedures but includes the following listed in this critical care notation. Medical Decision Making - Medical Records Medical records reviewed: Yes: I reviewed the patient's medical records. - Carlos Inquiry Pt receiving controlled substance: No Vital Signs: 03/14/21 21:08 03/14/21 21:30 03/14/21 22:00 Temperature 99.3 F Temperature Source Oral Pulse Rate 96 H 90 Pulse Rate [Left Radial] 102 H Respiratory Rate 16 Blood Pressure 128/80 120/79 Blood Pressure [Left Arm] 154/90 H Blood Pressure Mean [Left Arm] 111 Blood Pressure Source [Left Arm] Automatic Cuff Blood Pressure Position [Left Arm] Sitting 02 Sat by Pulse Oximetry 96 95 94 L Oxygen Delivery Method Room Air Room Air Room Air 03/14/21 22:30 03/14/21 23:00 Temperature Temperature Source Pulse Rate 89 83 Pulse Rate [Left Radial] Respiratory Rate Blood Pressure 128/83 141/81 H Blood Pressure [Left Arm] Blood Pressure Mean [Left Arm] Blood Pressure Source [Left Arm] Blood Pressure Position [Left Arm] 02 Sat by Pulse Oximetry 92 L 93 L Oxygen Delivery Method Room Air Room Air - Lab Data Lab Results 03/15/21 00:38: WBC 14.5 H, RBC 4.55 L, Hgb 13.6 L, Hct 42.2, MCV 92.9, MCH 29.8, MCHC 32.1, RDW 14.0, Plt Count 233, MPV 8.4, Neut % (Auto) 76.1, Lymph % (Auto) 15.7, [place] % (Auto) 6.9, Eos % (Auto) 0.7, Baso % (Auto) 0.5, Neut # (Auto) 11.1 H, Lymph # (Auto) 2.3, [place] # (Auto) 1.0, Eos # (Auto) 0.1, Baso # (Auto) 0.1, ESR 27 H 03/15/21 00:38: Sodium 138, Potassium 4.2, Chloride 105, Carbon Dioxide 28, Anion Gap 9.2, BUN 12, Creatinine 0.70, Estimated Creat Clear 133, Estimated GFR 117, Est GFR ( Amer) 142, Glucose 106 H, Calcium 8.5, C-Reactive Protein 55.7 H 03/15/21 00:38: Uric Acid 4.8 Result diagrams: 03/15/21 00:38 03/15/21 00:38 Orders (Tests/Meds): ED MEDICATIONS Discontinued Medications Generic Name Dose Route Start Last Admin Trade Name Freq PRN Reason Stop Dose Admin Lidocaine HCl 5 ml 03/14/21 23:07 Lidocaine 1% 10ml Mdv IJ 03/14/21 23:08 ONCE ONE Naproxen 500 mg 03/15/21 21:38 Naproxen 500mg Tablet PO 03/15/21 21:39 ONCE ONE Naproxen 500 mg 03/14/21 23:09 03/14/21 23:10 Naproxen 500mg Tablet PO 03/14/21 23:10 500 mg ONCE ONE Administration ORDERS Category Date Time Status Cell Ct. Synovial w/ Crystals Stat Lab 03/14/21 23:36 Received Rapid PCR Covid and Flu A/B Stat Lab 03/15/21 02:20 Ordered Body Fluid Culture, Sterile Stat Micro 03/14/21 23:36 Received Medical Decision Narrative: 55-year-old male presenting to the emergency d
[2021-03-14 22:00] VITALS: BP 120/79; PULSE 90; O2SAT 94
[2021-03-14 22:30] VITALS: BP 128/83; PULSE 89; O2SAT 92
[2021-03-14 23:00] VITALS: BP 141/81; PULSE 83; O2SAT 93
[2021-03-14 23:30] VITALS: BP 132/82; PULSE 77; O2SAT 97
[2021-03-15 00:45] LABS: Basophils # 0.1 K/mm3 (0-0.2); Basophils % 0.5 % (0.1-2.0); Eosinophils # 0.1 K/mm3 (0.0-0.4); Eosinophils % 0.7 % (0.1-12.0); Hematocrit 42.2 % (42.0-52.0); Hemoglobin 13.6 g/dL (14.1-18.0); Lymphocytes # 2.3 K/mm3 (0.7-4.5); Lymphocytes % 15.7 % (10-50); Mean Corpuscular HGB Conc 32.1 g/dL (31.8-35.4); Mean Corpuscular Hemoglobin 29.8 pg (27.0-31.2); Mean Corpuscular Volume 92.9 fl (80-94); Mean Platelet Volume 8.4 fl (7.4-10.4); Monocytes % 6.9 % (1.7-9.3); Neutrophils # 11.1 K/mm3 (1.8-7.8); Neutrophils % 76.1 % (37.0-80.0); Platelet Count 233 K/mm3 (142-424); Red Blood Count 4.55 M/mm3 (4.60-6.20); White Blood Count 14.5 K/mm3 (4.8-10.8)
[2021-03-15 00:57] LABS: Anion Gap 9.2 mEq/L (5-15); Blood Urea Nitrogen 12 mg/dl (9-20); Calcium 8.5 mg/dl (8.4-10.2); Carbon Dioxide 28 mmol/L (22.0-30.0); Chloride 105 mmol/L (98-107); Creatinine Clearance Estimated 133 mL/min (50-200); Estimated Glomerular Filt Rate 117 ml/min (>60); GFR (African American) 142 ML/MIN (>60); Glucose 106 mg/dl (74-100); Potassium 4.2 mmoL/L (3.5-5.1); Sodium 138 mmol/L (136-145)
[2021-03-15 01:00] VITALS: BP 118/71
[2021-03-15 01:03] LABS: C-Reactive Protein 55.7 mg/L (0-4)
[2021-03-15 01:12] LABS: Erythrocyte Sedimentation Rate 27 mm/hr (0-20)
[2021-03-15 01:30] VITALS: BP 109/77; PULSE 74; O2SAT 98
[2021-03-15 01:56] LABS: Uric Acid 4.8 mg/dl (3.5-8.5)
[2021-03-15 02:00] VITALS: BP 114/72; PULSE 76; O2SAT 97
--- NOTE | 2021-03-15 02:38 | PC.NURSE ---
MD Millie speaking with MD Channing
[2021-03-15 02:42] VITALS: BP 111/74; PULSE 75; RESP 16; TEMP 37.3; O2SAT 98
== END 2021-03-15 02:48 | disposition home or self-care (01) ==
PROVIDERS: Emergency Provider Emergency Medicine
DX: M13.131 Monoarthritis, not elsewhere classified, right wrist (principal)
CPT/HCPCS: 73110; 80048; 84550; 85025; 85651; 86140; 87070; 89051; 99283

== ENCOUNTER 2024-04-16 22:44 | Inpatient (IN) | payer OTHER, SELFPAY ==
[2024-04-16 22:47] VITALS: BP 118/79; PULSE 92; RESP 22; TEMP 36.6; O2SAT 96; BMI 25.9
--- NOTE | 2024-04-16 23:17 | HMH.EDGENADL ---
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 He reports he noticed it when he woke up from sleeping yesterday morning. It has continually becoming more painful. He reports severe pain now with moving his leg at all. He reports normal sensation in the leg. Denies any trauma. Denies any history of hernias. Denies testicular pain, denies pain with urination, reports this does not feel like a kidney stone. He reports that when he had a septic joint on the right before, they never found a reason for it. He reports it feels kind of like that. Denies fever at home. Related Data Allergies Allergy/AdvReac Type Severity Reaction Status Date / Time No Known Allergies Allergy Verified 12/23/19 04:01 [facility] Disclaimer: The information contained in this section may have been updated after the patient was seen, as this information can be updated by other users. 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 current occupational exposures/hazards: No caffeine: Yes Other Medical History Have you received the Flu Vaccine for this season: No Have you received the Pneumonia Vaccine: No ROS Obtained: Yes All systems reviewed & no additional complaints except as documented Physical Exam General General appearance: alert and in no apparent distress Head Head exam: atraumatic and normocephalic Eye Eye exam: Present normal appearance, PERRL and EOMI ENT ENT exam: Present normal oropharynx and normal external ear exam Neck Neck exam: Present normal inspection and full ROM Chest Chest inspection: Present normal inspection and symmetric chest wall rise; Absent tenderness Respiratory Respiratory exam: Present normal lung sounds bilaterally; Absent respiratory distress Cardiovascular Cardiovascular exam: Present regular rate and normal rhythm Abdominal Exam Abdominal exam: Present soft; Absent distention, tenderness or guarding exam: Present other (Tenderness even to deep palpation of the left medial inguinal area. No testicular soreness, no overlying erythema, no palpable lymph nodes or hernia) Extremities Exam Extremities exam: Present normal inspection; Absent edema or joint swelling Back Exam Back exam: Present normal inspection; Absent tenderness Neurological Exam Neurological exam: Present alert and oriented X3; Absent motor sensory deficit Psychiatric Psychiatric exam: Present normal affect and normal mood Skin Skin exam: Present warm, dry and normal color Lymphatic Lymphatic Findings: no adenopathy Medical Decision Making Medical Records Medical records reviewed: Yes I reviewed the patient's medical records. Screening: Per USPSTF and CDC recommendations, given the prevalence of disease in our region, it is our hospital?s policy to screen for HIV and viral Hepatitis for all patients aged 18 and over and those with ongoing risk factors. Carlos Inquiry Pt receiving controlled substance: No Carlos was queried for this patient: No Vital Signs: 04/16/24 22:47 04/16/24 23:36 04/17/24 01:01 Temperature 97.9 F Temperature Source Oral Pulse Rate 90 89 Pulse Rate [Apical] 92 H Respiratory Rate 22 22 22 Blood Pressure 118/78 117/90 Blood Pressure [Right Arm] 118/79 Blood Pressure Mean [Right Arm] 92 Blood Pressure Source [Right Arm] Manual Cuff/ Auscultation 02 Sat by Pulse Oximetry 96 96 95 Oxygen Delivery Method Room Air Room Air Room Air 04/17/24 03:16 Temperature 98.0 F Temperature Source Oral Pulse Rate 77 Pulse Rate [Apical] Respiratory Rate 20 Blood Pressure 136/93 H Blood Pressure [Right Arm] Blood Pressure Mean [Right Arm] Blood Pressure Source [Right Arm] 02 Sat by Pulse Oximetry Oxygen Delivery Method Room Air Lab Data Lab results reviewed: Yes I reviewed the patient's lab results. Lab Results 04/16/24 23:23: WBC 12.1 H, RBC 4.50 L, Hgb 13.6 L, Hct 40.6 L, MCV 90.2, MCH 30.2, MCHC 33.5, RDW 13.6, Plt Count 233, MPV 8.0, Neut % (Auto) 71.0, Lymph % (Auto) 18.0, [place] % (Auto) 8.6, Eos % (Auto) 1.5, Baso % (Auto) 0.9, Neut # (Auto) 8.6 H, Lymph # (Auto) 2.2, [place] # (Auto) 1.0, Eos # (Auto) 0.2, Baso # (Auto) 0.1, ESR 14, Sodium 137, Potassium 4.0, Chloride 102, Carbon Dioxide 25, Anion Gap 14.0, BUN 14, Creatinine 0.80, Estimated Creat Clear 117, Estimated GFR 99, Est GFR ( Amer) 120, Glucose 108 H, Lactate 1.2, Calcium 8.6, Total Bilirubin 0.6, AST 21, ALT 20, Alkaline Phosphatase 78, C-Reactive Protein 53.7 H, Total Protein 7.1, Albumin 4.2, Globulin 2.9, Albumin/Globulin Ratio 1.4, HIV 1&2 Antibody Rapid Nonreactive 04/16/24 23:23 04/16/24 23:23 Orders (Tests/Meds): ED MEDICATIONS Generic Name Dose Route Start Last Admin Trade Name Freq PRN Reason Stop Dose Admin Acetaminophen 650 mg 04/17/24 02:10 Acetaminophen 325mg Tab PO 05/17/24 02:09 Q4HP PRN Fever or Mild Pain (1-3) Hydrocodone Bitart/Acetaminophen 1 tab 04/17/24 02:10 Hydrocodone/Apap 5/325 Mg Tablet PO 05/17/24 02:09 Q4HP PRN Mild to Moderate Pain (1-6) Hydrocodone Bitart/Acetaminophen 2 tab 04/17/24 02:10 04/17/24 03:10 Hydrocodone/Apap 5/325 Mg Tablet PO 05/17/24 02:09 2 tab Q4HP PRN Administration Moderate to Severe Pain (4-10) Sodium Chloride 1,000 mls @ 75 mls/hr 04/17/24 02:15 04/17/24 03:24 Sod Chlor 0.9% 1000ml Bag IV 05/17/24 02:14 75 mls/hr .[id number] RANDY Administration Ketorolac Tromethamine 30 mg 04/17/24 02:10 04/17/24 03:09 Ketorolac 30mg/Ml Vial IV 04/22/24 02:09 30 mg Q6HP PRN Administration Moderate Pain (4-6) Ondansetron HCl 4 mg 04/17/24 02:10 Ondansetron 4mg/2ml Vial IV 05/17/24 02:09 Q8HP PRN Nausea Sodium Chloride 10 ml 04/17/24 00:04 04/17/24 00:10 Sodium Chloride 0.9% 10ml Syr (Rad Only) IV 05/17/24 00:03 10 ml NEEDED PRN Administration Maintain IV Site Discontinued Medications Generic Name Dose Route Start Last Admin Trade Name Realq PRN Reason Stop Dose Admin Iopamidol 75 ml 04/17/24 00:04 04/17/24 00:10 Iopamidol-370 (76%);100ml Bottle IV 04/17/24 00:05 75 ml ONCE ONE Administration ORDERS Category Date Time Status CT abdomen pelvis w con Stat Cat Scan 04/16/24 23:19 Completed Ortho Consult [Consult to Orthopedic Surgery] [CONS] Cons 04/17/24 02:10 Ordered Stat CBC w/Auto Diff [Complete Blood Count Auto Diff] Stat Lab 04/16/24 23:23 Completed CMP [Comprehensive Metabolic Panel] Stat Lab 04/16/24 23:23 Completed CRP [C-Reactive Protein] Stat Lab 04/16/24 23:23 Completed Complete Blood Count Auto Diff AMLAB Lab 04/17/24 06:00 Ordered Complete Blood Count Auto Diff AMLAB Lab 04/18/24 06:00 Ordered Complete Blood Count Auto Diff AMLAB Lab 04/19/24 06:00 Ordered Complete Blood Count Auto Diff AMLAB Lab 04/20/24 06:00 Ordered Comprehensive Metabolic Panel AMLAB Lab 04/17/24 06:00 Ordered Comprehensive Metabolic Panel AMLAB Lab 04/18/24 06:00 Ordered Comprehensive Metabolic Panel AMLAB Lab 04/19/24 06:00 Ordered Comprehensive Metabolic Panel AMLAB Lab 04/20/24 06:00 Ordered ESR [Erythrocyte Sedimentation Rate] Stat Lab 04/16/24 23:23 Completed HIV (1&2) Antibody Rapid Stat Lab 04/16/24 23:23 Completed Hep C Ab with Reflex to RNA Stat Lab 04/16/24 23:23 Received Lactic Acid Stat Lab 04/16/24 23:23 Completed UA [Urinalysis and Microscopic] Stat Lab 04/17/24 02:52 Completed Blood Culture Stat Micro 04/16/24 00:21 Received Medical Decision Narrative: 58-year-old male with history of prior septic hip on his right side, prior DVTs presents with 2 days of worsening left hip/inguinal pain.. History was obtained via interactive discussion with patient, chart review. On arrival, patient is [afebrile, hemodynamically stable, satting appropriately, alert, oriented x4, GCS 15], moving all extremities spontaneously. Full physical exam performed and significant for severe pain with range of motion of the hip, otherwise normal exam. Differential includes but is not limited to septic arthritis, DVT, arterial insufficiency, inguinal hernia, femoral hernia, testicular pathology, colitis,. Bedside ultrasound was performed by me, no evidence of femoral DVT, abscess or hernia sac. Patient repeatedly declined medications for pain.. Workup initiated including CBC CMP CRP ESR CT abdomen pelvis with IV contrast.. On re-evaluation, patient [remains afebrile, HD stable.] Laboratory workup independently interpreted by me and significant for elevated CRP at 53, elevated white count, normal ESR. Urinalysis not consistent with infection. Imaging independently interpreted by me and significant for findings consistent with left hip effusion. Patient also has an incidentally noted liver abnormality. See radiology read for full review of final results. Given patient history, exam and workup, patient's presentation most likely represents possible septic arthritis of the left hip. I called and spoke with our orthopedist on-call. As long as we have a runner available in the morning, we should be able to perform the aspiration and avoid patient transfer. The patient is not currently septic and does not require emergent antibiotic therapy. I had an interactive discussion with the hospitalist on-call for admission. Procedures Risk/Benefits of Procedure(s) Were Explained: Yes Limited Ultrasound Indication:: Limited soft tissue ultrasound Indication: Inguinal pain Identified structures: Location: Left femoral neurovascular bundle Findings: Normal soft tissue ultrasound, compressible femoral vein, no abscess, no hernia sac Impression: Normal limited soft tissue ultrasound Images were saved to permanent archive The study was technically adequate Soft Tissue CPT Codes: CPT Lower Extremity: 51430-82 This study was performed by me, and I personally interpreted all images/videos. Critical Care Critical Care Time Critical Care Time: No
--- NOTE | 2024-04-16 23:19 | CT_ITS ---
PROCEDURE INFORMATION: Exam: CT Abdomen And Pelvis With Contrast Exam date and time: 04/16/2024 11:53 PM Age: 58 years old Clinical indication: Abdominal pain; Localized; Left lower quadrant (llq); Additional info: Left deep inguinal pain, HX dvts, HX R septic hip TECHNIQUE: Imaging protocol: Computed tomography of the abdomen and pelvis with contrast. Radiation optimization: All CT scans at this facility use at least one of these dose optimization techniques: automated exposure control; mA and/or kV adjustment per patient size (includes targeted exams where dose is matched to clinical indication); or iterative reconstruction. Contrast material: ISOVUE; Contrast volume: 75 ml; Contrast route: IV; COMPARISON: CT ABDOMEN PELVIS W CON 12/23/2019 4:41 AM FINDINGS: Lungs: Small areas of atelectasis are noted in the lung bases. Liver: There is a fairly well-circumscribed enhancing 3.7 cm lesion in the right hepatic lobe, image 37 of the coronal reformats. Gallbladder and biliary ducts: No acute findings, calcified stones or ductal dilation. Pancreas: No acute findings, focal abnormality or ductal dilation. Spleen: Well-circumscribed cystic appearing lesion in the spleen, image 23 series 3. Adrenal glands: No acute findings or mass. Kidneys and ureters: No acute obstructive uropathy. Nonobstructing intrarenal calculi on the left. Stomach and bowel: No obstruction. No mucosal thickening. Appendix: No evidence of appendicitis. Intraperitoneal space: No free air. No significant fluid collection. Vasculature: No abdominal aortic aneurysm. Lymph nodes: No pathologically enlarged lymph nodes. Urinary bladder: Unremarkable as visualized. Reproductive: Unremarkable as visualized. Bones/joints: Left hip joint effusion. Chronic fracture of the left 10th rib. 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 No significant central canal stenosis. Soft tissues: No acute findings. IMPRESSION: 1. Left hip joint effusion. 2. 3.7 cm enhancing lesion in the right hepatic lobe segment 7. This may represent a flash filling hemangioma, however further characterization with nonemergent multiphasic hepatic CT or MRI is recommended. 3. Other chronic changes as described.
[2024-04-16 23:34] LABS: Basophils # 0.1 K/mm3 (0-0.2); Basophils % 0.9 % (0.1-2.0); Eosinophils # 0.2 K/mm3 (0.0-0.4); Eosinophils % 1.5 % (0.1-12.0); Hematocrit 40.6 % (42.0-52.0); Hemoglobin 13.6 g/dL (14.1-18.0); Lymphocytes # 2.2 K/mm3 (0.7-4.5); Mean Corpuscular HGB Conc 33.5 g/dL (31.8-35.4); Mean Corpuscular Hemoglobin 30.2 pg (27.0-31.2); Mean Corpuscular Volume 90.2 fl (80-94); Monocytes % 8.6 % (1.7-9.3); Neutrophils # 8.6 K/mm3 (1.8-7.8); Platelet Count 233 K/mm3 (142-424); Red Cell Distribution Width 13.6 % (11.5-17.5); White Blood Count 12.1 K/mm3 (4.8-10.8)
[2024-04-16 23:36] VITALS: BP 118/78; PULSE 90; RESP 22; O2SAT 96
[2024-04-16 23:43] LABS: Alanine Aminotransferase 20 U/L (12-78); Albumin Level 4.2 g/dl (3.5-5.0); Albumin/Globulin Ratio 1.4 (1.1-1.8); Alkaline Phosphatase 78 U/L (38-126); Aspartate Amino Transferase 21 U/L (17-59); Bilirubin,Total 0.6 mg/dl (0.2-1.3); Blood Urea Nitrogen 14 mg/dl (9-20); Calcium 8.6 mg/dl (8.4-10.2); Carbon Dioxide 25 mmol/L (22.0-30.0); Chloride 102 mmol/L (98-107); Creatinine Clearance Estimated 117 mL/min (50-200); Estimated Glomerular Filt Rate 99 ml/min (>60); GFR (African American) 120 ML/MIN (>60); Globulin 2.9 g/dL (1.3-3.2); Glucose 108 mg/dl (74-100); Lactic Acid 1.2 mmol/L (0.7-2.1); Sodium 137 mmol/L (136-145); Total Protein,Serum 7.1 g/dl (6.3-8.2)
[2024-04-16 23:48] LABS: C-Reactive Protein 53.7 mg/L (0-4)
[2024-04-17] VITALS (17 sets, daily range): BP systolic 102–145; BP diastolic 47–98; PULSE 55–89; RESP 14–22; TEMP -10–37.2; O2SAT 93–99; BMI 24.8
[2024-04-17 00:10] LABS: Erythrocyte Sedimentation Rate 14 mm/hr (0-20)
[2024-04-17] MEDS: SODIUM CHLORIDE 0.9% 10ML SYR (RAD ONLY) 10 ML IV (00:10)
[2024-04-17] MEDS: IOPAMIDOL-370 (76%);100ML BOTTLE 75 ML IV (00:10)
[2024-04-17 00:25] LABS: HIV (1&2) Antibody Rapid NONREACTIVE (NONREACTIVE)
--- NOTE | 2024-04-17 01:50 | PC.NURSE ---
Dr. Woodson s/w Dr Miller for ortho consult
--- NOTE | 2024-04-17 02:15 | P.HP_ITS ---
History of Present Illness *Admission Date: 04/17/24 *Reason for visit:: Left hip septic arthritis *History of present illness: Fabian Fink is a 58-year-old male with a medical history significant for right hip septic arthritis s/p arthrotomy about 25 years ago, 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 He states he had been fine until Tuesday when he started abruptly in the left hip with some radiation towards his knee. Denies trauma, or tweaking it. 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 Denies fever/chills, fatigue, IV drug use. Workup in the ED significant for WBC 12.1. CT abdomen/pelvis shows left hip joint effusion and 3.7 cm enhancing right hepatic lobe lesion. Orthopedic surgery was consulted by the ED who recommended admission for arthrocentesis and potential washout. Case discussed with ED provider and decision was made to admit patient for left hip septic arthritis. [facility] Disclaimer: The information contained in this section may have been updated after the patient was seen, as this information can be updated by other users. 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 current occupational exposures/hazards: No caffeine: Yes Other Medical History Have you received the Flu Vaccine for this season: No Have you received the Pneumonia Vaccine: No Meds Home Medications and Allergies Home Medications ?Medication ?Instructions ?Recorded ?Confirmed ?Type No Known Home Medications 04/17/24 04/17/24 History New Prescriptions to Start Prescriptions: Allergies Allergy/AdvReac Type Severity Reaction Status Date / Time No Known Allergies Allergy Verified 12/23/19 04:01 Exam Data for Last 24 hours Vital signs and Labs for Last 24 Hours: Temp Pulse Resp BP Pulse Ox O2 Del Method 97.9 F 89 22 117/90 95 Room Air 04/16/24 22:47 04/17/24 01:01 04/17/24 01:01 04/17/24 01:01 04/17/24 01:01 04/17/24 01:01 Laboratory Results - last 24 hr 04/16/24 23:23: WBC 12.1 H, RBC 4.50 L, Hgb 13.6 L, Hct 40.6 L, MCV 90.2, MCH 30.2, MCHC 33.5, RDW 13.6, Plt Count 233, MPV 8.0, Neut % (Auto) 71.0, Lymph % (Auto) 18.0, [place] % (Auto) 8.6, Eos % (Auto) 1.5, Baso % (Auto) 0.9, Neut # (Auto) 8.6 H, Lymph # (Auto) 2.2, [place] # (Auto) 1.0, Eos # (Auto) 0.2, Baso # (Auto) 0.1, ESR 14, Sodium 137, Potassium 4.0, Chloride 102, Carbon Dioxide 25, Anion Gap 14.0, BUN 14, Creatinine 0.80, Estimated Creat Clear 117, Estimated GFR 99, Est GFR ( Amer) 120, Glucose 108 H, Lactate 1.2, Calcium 8.6, Total Bilirubin 0.6, AST 21, ALT 20, Alkaline Phosphatase 78, C-Reactive Protein 53.7 H, Total Protein 7.1, Albumin 4.2, Globulin 2.9, Albumin/Globulin Ratio 1.4, HIV 1&2 Antibody Rapid Nonreactive I & O for Last 24 hours: Intake & Output 04/14/24 04/15/24 04/16/24 04/17/24 23:59 23:59 23:59 23:59 Weight 82.117 kg Constitutional Constitutional: no acute distress *Routine HEENT Exam Head: Present normocephalic Eye: Present EOMI and PERRL ENT: Present mucous membranes moist *Routine Neck Exam Neck: Present supple; Absent lymphadenopathy *Routine Respiratory Exam Respiratory: Present CTA bilaterally *Routine Cardiovascular Exam Cardiovascular: Present RRR *Routine Abdominal Exam Abdominal: Present soft and normoactive bowel sounds; Absent tenderness *Routine Rectal Exam Rectal:: deferred *Routine Genitalia Exam Genitalia:: deferred *Routine Extremities Exam Extremities: Absent cyanosis, clubbing or edema Comments: Tenderness to palpation in the left groin without overlying erythema. Range of motion of left hip limited by pain. 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 He states he had been fine until Tuesday when he started abruptly in the left hip with some radiation towards his knee. Denies trauma, or tweaking it. 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 Denies fever/chills, fatigue, IV drug use. Workup in the ED significant for WBC 12.1. CT abdomen/pelvis shows left hip joint effusion and 3.7 cm enhancing right hepatic lobe lesion. Orthopedic surgery was consulted by the ED who recommended admission for arthrocentesis and potential washout. Case discussed with ED provider and decision was made to admit patient for left hip septic arthritis. #Left hip septic arthritis ? Minimal aspirate was obtained with fine-needle aspiration by orthopedic surgery today. ? Follow-up hip MRI does show moderate left hip joint effusion with edema and inflammation suggestive of septic arthritis. ? Orthopedic surgery following, planning for left hip washout tomorrow. N.p.o. at midnight. ? Vancomycin, cefepime day 1. ? Follow-up blood cultures. ? Pain control with Tylenol, [place]. ? Vital signs stable. White count normal. DVT prophylaxis: Lovenox 40. Plan to restart after surgery tomorrow. N.p.o. after midnight
[2024-04-17] MEDS: KETOROLAC 30MG/ML VIAL 30 MG IV ×4 (03:09→23:24)
[2024-04-17] MEDS: HYDROCODONE/APAP 5/325 MG TABLET 2 TAB PO (03:10)
[2024-04-17 03:18] LABS: Microscopic, Urine URINE MICROSCOPIC (MICROSCOPIC)
[2024-04-17 03:22] LABS: Appearance,Urine CLEAR (Clear); Bilirubin,Urine Negative (Negative); Blood, Urine 1+ (Negative); Color,Urine YELLOW (Yellow); Glucose,Urine (UA) Negative (Negative); Ketones,Urine Negative (Negative); Leukocyte Esterase,Urine Negative (Negative); Nitrate,Urine Negative (Negative); PH,Urine 7.5 (5.0-8.5); Protein,Urine Negative (Negative)
[2024-04-17] MEDS: 0.9 % SODIUM CHLORIDE 1000ML 1,000 ML 75 ML IV (03:24)
[2024-04-17 03:33] LABS: Bacteria,Urine Trace /lpf
[2024-04-17 06:52] LABS: Basophils % 0.4 % (0.1-2.0); Eosinophils # 0.1 K/mm3 (0.0-0.4); Eosinophils % 1.1 % (0.1-12.0); Hematocrit 36.9 % (42.0-52.0); Hemoglobin 12.7 g/dL (14.1-18.0); Lymphocytes # 2.4 K/mm3 (0.7-4.5); Lymphocytes % 24.5 % (10-50); Mean Corpuscular HGB Conc 34.4 g/dL (31.8-35.4); Mean Corpuscular Hemoglobin 30.4 pg (27.0-31.2); Mean Corpuscular Volume 88.2 fl (80-94); Mean Platelet Volume 8.1 fl (7.4-10.4); Neutrophils # 6.2 K/mm3 (1.8-7.8); Neutrophils % 63.9 % (37.0-80.0); Platelet Count 210 K/mm3 (142-424); Red Blood Count 4.19 M/mm3 (4.60-6.20); Red Cell Distribution Width 13.8 % (11.5-17.5); White Blood Count 9.8 K/mm3 (4.8-10.8)
[2024-04-17 07:02] LABS: Alanine Aminotransferase 14 U/L (12-78); Albumin Level 3.6 g/dl (3.5-5.0); Albumin/Globulin Ratio 1.3 (1.1-1.8); Alkaline Phosphatase 70 U/L (38-126); Anion Gap 10.9 mEq/L (5-15); Aspartate Amino Transferase 20 U/L (17-59); Bilirubin,Total 0.7 mg/dl (0.2-1.3); Blood Urea Nitrogen 14 mg/dl (9-20); Calcium 8.2 mg/dl (8.4-10.2); Carbon Dioxide 25 mmol/L (22.0-30.0); Chloride 104 mmol/L (98-107); Creatinine Clearance Estimated 112 mL/min (50-200); Estimated Glomerular Filt Rate 99 ml/min (>60); GFR (African American) 120 ML/MIN (>60); Globulin 2.8 g/dL (1.3-3.2); Glucose 94 mg/dl (74-100); Potassium 3.9 mmoL/L (3.5-5.1); Sodium 136 mmol/L (136-145); Total Protein,Serum 6.4 g/dl (6.3-8.2)
--- NOTE | 2024-04-17 08:41 | P.CONS_ITS ---
History of Present Illness *Admission Date: 04/17/24 *Reason for visit:: Left hip pain possible septic arthritis *History of present illness: 58-year-old male who presents emergency room after onset of left hip pain. He reports that the onset was abrupt starting on Tuesday. Pain was mostly in the groin area of the hip occasionally radiating down the anterior thigh. He has some difficulty with rotating the hip with pain radiating to the groin. He reports that in the past he had a septic right hip he does not remember the complete details of the situation although he remembers having to have an arthrotomy of the hip this is approximately 20-25 years ago. He does not remember the specifics of the situation only that he had to have arthrotomy of the hip. He reports no known history of infective endocarditis or any other systemic infectious disease. He has had gout flareups in his feet in the past never in his hip or other joints. Workup in the emergency room revealed effusion left hip on CT scan. Raising concern for septic arthritis and left hip for which she was admitted to the hospital. [facility] Disclaimer: The information contained in this section may have been updated after the patient was seen, as this information can be updated by other users. 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 current occupational exposures/hazards: No caffeine: Yes Meds Home Medications and Allergies New Prescriptions to Start Prescriptions: Allergies Allergy/AdvReac Type Severity Reaction Status Date / Time No Known Allergies Allergy Verified 12/23/19 04:01 Ortho Exam (Inpt) Vital signs and Labs for Last 24 Hours: Temp Pulse Resp BP Pulse Ox O2 Del Method 97.7 F 64 18 102/69 L 95 Room Air 04/17/24 08:00 04/17/24 08:00 04/17/24 08:00 04/17/24 08:00 04/17/24 08:00 04/17/24 08:00 Laboratory Results - last 24 hr 04/16/24 23:23: WBC 12.1 H, RBC 4.50 L, Hgb 13.6 L, Hct 40.6 L, MCV 90.2, MCH 30.2, MCHC 33.5, RDW 13.6, Plt Count 233, MPV 8.0, Neut % (Auto) 71.0, Lymph % (Auto) 18.0, [place] % (Auto) 8.6, Eos % (Auto) 1.5, Baso % (Auto) 0.9, Neut # (Auto) 8.6 H, Lymph # (Auto) 2.2, [place] # (Auto) 1.0, Eos # (Auto) 0.2, Baso # (Auto) 0.1, ESR 14, Sodium 137, Potassium 4.0, Chloride 102, Carbon Dioxide 25, Anion Gap 14.0, BUN 14, Creatinine 0.80, Estimated Creat Clear 117, Estimated GFR 99, Est GFR ( Amer) 120, Glucose 108 H, Lactate 1.2, Calcium 8.6, Total Bilirubin 0.6, AST 21, ALT 20, Alkaline Phosphatase 78, C-Reactive Protein 53.7 H, Total Protein 7.1, Albumin 4.2, Globulin 2.9, Albumin/Globulin Ratio 1.4, HIV 1&2 Antibody Rapid Nonreactive 04/17/24 02:52: Urine Color Yellow, Urine Appearance Clear, Urine pH 7.5, Ur Specific [place] 1.010, Urine Protein Negative, Urine Glucose (UA) Negative, Urine Ketones Negative, Urine Blood 1+ A, Urine Nitrate Negative, Urine Bilirubin Negative, Urine Urobilinogen 1.0, Ur Leukocyte Esterase Negative, Urine RBC 3-5, Urine WBC None, Ur Squamous Epith Cells 3-5, Urine Bacteria Trace 04/17/24 05:34: WBC 9.8, RBC 4.19 L, Hgb 12.7 L, Hct 36.9 L, MCV 88.2, MCH 30.4, MCHC 34.4, RDW 13.8, Plt Count 210, MPV 8.1, Neut % (Auto) 63.9, Lymph % (Auto) 24.5, [place] % (Auto) 10.0 H, Eos % (Auto) 1.1, Baso % (Auto) 0.4, Neut # (Auto) 6.2, Lymph # (Auto) 2.4, [place] # (Auto) 1.0, Eos # (Auto) 0.1, Baso # (Auto) 0.0, Sodium 136, Potassium 3.9, Chloride 104, Carbon Dioxide 25, Anion Gap 10.9, BUN 14, Creatinine 0.80, Estimated Creat Clear 112, Estimated GFR 99, Est GFR ( Amer) 120, Glucose 94, Calcium 8.2 L, Total Bilirubin 0.7, AST 20, ALT 14 D, Alkaline Phosphatase 70, Total Protein 6.4, Albumin 3.6 D, Globulin 2.8, Albumin/Globulin Ratio 1.3 I & O for Labs for Last 24 Hours: Intake & Output 04/14/24 04/15/24 04/16/24 04/17/24 23:59 23:59 23:59 23:59 Weight 181 lb 0.587 oz 173 lb 8 oz Head: Present normocephalic and atraumatic Additional findings:: Left hip: Laying straight in the bed. Mild groin pain with internal and external rotation. Significant groin pain with active forward flexion and external rotation. Skins intact. No redness erythema around the hip. Results Labs 04/17/24 05:34 04/17/24 05:34 Labs: Abnormal lab results 04/16/24 04/17/24 04/17/24 Range/Units 23:23 02:52 05:34 WBC 12.1 H (4.8-10.8) K/mm3 RBC 4.50 L 4.19 L (4.60-6.20) M/mm3 Hgb 13.6 L 12.7 L (14.1-18.0) g/dL Hct 40.6 L 36.9 L (42.0-52.0) % [place] % (Auto) 10.0 H (1.7-9.3) % Neut # (Auto) 8.6 H (1.8-7.8) K/mm3 Glucose 108 H (74-100) mg/dl Calcium 8.2 L (8.4-10.2) mg/dl C-Reactive Protein 53.7 H (0-4) mg/L Urine Blood 1+ A (Negative) H & H 04/16/24 04/17/24 Range/Units 23:23 05:34 Hgb 13.6 L 12.7 L (14.1-18.0) g/dL Hct 40.6 L 36.9 L (42.0-52.0) % All other labs normal. Assessment and Plan *Assessment and plan (1) Acute pain of left hip: Status: Acute Category: Medical Code(s): M25.552 - Pain in left hip Plan Patient with acute onset left hip pain. Unlike any previous hip pain he experienced with osteoarthritis. Patient reports he does not know that he had underlying osteoarthritis in the hip. Differential includes flare of osteoarthritis in the hip which is probable as well as possible septic arthritis in the hip. There is no known real source for this there is no previous surgery to the left hip however he did experience septic arthritis in the past in the right hip. Patient also has a history of gout will add uric acid level to screening. Will consent patient for hip aspiration under x-ray guidance. I explained in detail with the patient that we will send this for Gram stain culture crystals for diagnostic purposes. If Gram stain culture positive would require arthrotomy of the hip.
[2024-04-17 08:52] LABS: Uric Acid 4.6 mg/dl (3.5-8.5)
--- NOTE | 2024-04-17 08:56 | HMH.PHAINT1 ---
Pharmacy Intervention Comments: PATIENT IS NOT ON ANY HOME MEDICATIONS PER PATIENT INTERVIEW
--- NOTE | 2024-04-17 10:24 | EXP.ANES.CKL ---
[facility] Disclaimer: The information contained in this section may have been updated after the patient was seen, as this information can be updated by other users. 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 current occupational exposures/hazards: No caffeine: Yes [facility] Anesthesia Checklist Patient Identification Patient Identification: Arm Band and Verbal (Name & ) Structural Data Admitted From: Home Planned Operative Procedure/s: Hip aspiration L Consent for Planned Operative Procedure(s) Verified: Yes Verified Documents: Surgical Consent and History and Physical NPO Status Verified Time NPO: 00:00 Additional verifications Anesthesia Reactions: No Airway Assessment Mallampati Score:: Class II C-Spine Mobility Assessed: Yes TMJ Mobility Assessed: Yes Dentition: Edentulous Neurological Assessment Level of Consciousness: Awake Hx Seizures: No Numbness or tingling in extremities: No Anesthesia Plan Anesthesia Risk discussed: Yes Anesthesia Plan: Verified ASA Class: II Anesthesia Type: MAC
--- NOTE | 2024-04-17 11:06 | EXP.OP.NOTE ---
Date of procedure: 04/17/24 Pre-op Diagnosis:: Left hip pain, effusion Post-op Diagnosis:: Same Procedure performed:: Left hip aspiration x-ray guidance for needle placement Surgeon:: Dallas Miller DO DELIVERY DRIVER/SUPERVISOR:: Delores Rodriguez Anesthesia: MAC Estimated blood loss (mL): 0 Operative findings:: Less than half cc synovial fluid nonpurulent Operative note:: Patient identified preoperatively. Left hip marked with yes my initials. Then taken the operating room. Placed upon on the radiolucent bed. Patient given sedation. Left hip was then prepped draped normal sterile fashion. Once prepped and draped final operative timeout performed to identify proper patient procedure and extremity. Everyone involved the case agreed. There is no counter indications to beginning. X-ray was brought into identify the hip capsule. 18-gauge spinal needle was directed into the hip capsule which was felt going into the capsule. Aspiration was attempted. There was very small aspirate less than half cc come back. Because of the lack of return then I got contrast and injected contrast to confirm needle placement within the capsule. This was confirmed radiographically. Aspiration was attempted again. There is no further return of fluid. Therefore needle was redirected superiorly to another area within the hip capsule. Aspiration attempted again and no fluid was returned. The small amount of fluid half cc was swabbed for culture swabs there was not sufficient fluid for fluid analysis. Upon patient being asleep and examination of the of the left hip while asleep there was some mild swelling of the anterior hip with some bogginess around the superficial musculatures of the hip. Will order MRI scan to evaluate any evidence of abscess outside of the hip capsule. Condition: stable Disposition: PACU Specimens:: Fluid for culture Complications:: None apparent
--- NOTE | 2024-04-17 11:07 | EXP.ANES.I ---
[facility] Anesthesia Record Part I Anesthesia Record I Intake, IV Amount: 200 Hydration: Adequate Estimated blood loss (mL): 0 Urine output (mL): 0 Blood Pressure: 108/65 SaO2: 96 Pulse Rate: 62 Airway Patency: Patent Respiratory Rate: 14 Temperature: 14 F Patient is:: Awake Stable to PACU at:: 11:03
--- NOTE | 2024-04-17 11:08 | XR_ITS ---
FINAL REPORT CLINICAL HISTORY: left hip injection 1.68 mgy .08 fluoro time FINDINGS: FLUOROSCOPY LESS THAN 1 HOUR HISTORY: Fluoroscopy guidance. FINDINGS: Fluoroscopic guidance was provided for left hip injection. A single spot film was obtained. A total of 0.08 minutes of fluoroscopy time were used. DAP: 1.68 mGy IMPRESSION: As above. Reviewed, Interpreted and Dictated by Pranay Juárez III, MD Transcribed by Noelle Wallace Authenticated and [facility]
--- NOTE | 2024-04-17 11:44 | MR_ITS ---
FINAL REPORT CLINICAL HISTORY: LEFT HIP INFECTION COMPARISON: None FINDINGS: Multiplanar MR imaging of the left hip was performed without contrast. There is motion on many sequences which limits overall image quality. There is no evidence of fracture or dislocation. There is no evidence of avascular necrosis or bone marrow edema. No bony mass is identified. There is labral degeneration present without a convincing tear. Mild degenerative change is present. A moderate joint effusion is seen. There is also edema or inflammatory change in the surrounding soft tissues and musculature, worrisome for a septic arthritis. No soft tissue mass or cyst is identified. IMPRESSION: There is moderate left hip joint effusion, with edema or inflammation in the surrounding soft tissues and musculature, worrisome for a septic arthritis. Labral degeneration without a convincing tear. No evidence of fracture, bone marrow edema, or avascular necrosis. Reviewed, Interpreted and Dictated by Pranay Juárez III, MD Transcribed by Ele Dumont Authenticated and [facility]
[2024-04-17] MEDS: HYDROCODONE/APAP 5/325 MG TABLET 1 TAB PO (13:47)
--- NOTE | 2024-04-17 14:19 | EXP.PHA.CONS ---
Pharmacy Consult Date: 04/17/24 Time: 14:19 Referring provider: DR. MARQUES Reason for Consult:: VANCOMYCIN DOSING Allergies Allergy/AdvReac Type Severity Reaction Status Date / Time No Known Allergies Allergy Verified 12/23/19 04:01 Home Medications ?Medication ?Instructions ?Recorded ?Confirmed ?Type No Known Home Medications 04/17/24 04/17/24 History New Prescriptions to Start Prescriptions: Height: 1.78 m Weight: 78.698 kg Laboratory Results:: Laboratory Results - last 24 hr 04/16/24 23:23: WBC 12.1 H, RBC 4.50 L, Hgb 13.6 L, Hct 40.6 L, MCV 90.2, MCH 30.2, MCHC 33.5, RDW 13.6, Plt Count 233, MPV 8.0, Neut % (Auto) 71.0, Lymph % (Auto) 18.0, [place] % (Auto) 8.6, Eos % (Auto) 1.5, Baso % (Auto) 0.9, Neut # (Auto) 8.6 H, Lymph # (Auto) 2.2, [place] # (Auto) 1.0, Eos # (Auto) 0.2, Baso # (Auto) 0.1, ESR 14, Sodium 137, Potassium 4.0, Chloride 102, Carbon Dioxide 25, Anion Gap 14.0, BUN 14, Creatinine 0.80, Estimated Creat Clear 117, Estimated GFR 99, Est GFR ( Amer) 120, Glucose 108 H, Lactate 1.2, Calcium 8.6, Total Bilirubin 0.6, AST 21, ALT 20, Alkaline Phosphatase 78, C-Reactive Protein 53.7 H, Total Protein 7.1, Albumin 4.2, Globulin 2.9, Albumin/Globulin Ratio 1.4, HIV 1&2 Antibody Rapid Nonreactive 04/17/24 02:52: Urine Color Yellow, Urine Appearance Clear, Urine pH 7.5, Ur Specific [place] 1.010, Urine Protein Negative, Urine Glucose (UA) Negative, Urine Ketones Negative, Urine Blood 1+ A, Urine Nitrate Negative, Urine Bilirubin Negative, Urine Urobilinogen 1.0, Ur Leukocyte Esterase Negative, Urine RBC 3-5, Urine WBC None, Ur Squamous Epith Cells 3-5, Urine Bacteria Trace 04/17/24 05:34: WBC 9.8, RBC 4.19 L, Hgb 12.7 L, Hct 36.9 L, MCV 88.2, MCH 30.4, MCHC 34.4, RDW 13.8, Plt Count 210, MPV 8.1, Neut % (Auto) 63.9, Lymph % (Auto) 24.5, [place] % (Auto) 10.0 H, Eos % (Auto) 1.1, Baso % (Auto) 0.4, Neut # (Auto) 6.2, Lymph # (Auto) 2.4, [place] # (Auto) 1.0, Eos # (Auto) 0.1, Baso # (Auto) 0.0, Sodium 136, Potassium 3.9, Chloride 104, Carbon Dioxide 25, Anion Gap 10.9, BUN 14, Creatinine 0.80, Estimated Creat Clear 112, Estimated GFR 99, Est GFR ( Amer) 120, Glucose 94, Uric Acid 4.6, Calcium 8.2 L, Total Bilirubin 0.7, AST 20, ALT 14 D, Alkaline Phosphatase 70, Total Protein 6.4, Albumin 3.6 D, Globulin 2.8, Albumin/Globulin Ratio 1.3 Assessment and Plan Assessment and plan all Dx Assessment and Plan for all problems:: Pharmacokinetic dosing service Objective: Patient: Floor: Age: 58 yo Serum creatinine: 0.80 mg/dL Height: 70.1 Inches Weight (kg): 78.7 Assessment: IBW (kg): 73.23 Dosing wt(kg): 78.7 Estimated Creatinine clearance (ml/min): 104.3 CRCL method: Cockcroft and Gault using ibw(default). Drug selected: Vancomycin Loading dose (mg): Vd (liters): 63.0 (factor used: 0.8 L/kg) Sam (hr-1): 0.091 Half life (hrs): 7.62 CLvanco=?? 5.733 L/hr Recommended dose: 1500 mg Interval: 12 hrs Infusion time (hrs): 2.0 Predicted peak (mcg/mL): 32.8 Predicted trough (mcg/mL): 13.20 Total body weight is being used for vancomycin dosing. Recommendations: Give Vancomycin 1500 mg q 12 hrs with an expected Cpeak of 32.8 mcg/ml and an expected Ctrough of 13.20 mcg/ml AUC 0-24 /WILMER Data: WILMER 0.5 mcg/mL:?? AUC/WILMER:? 1046.6 WILMER 1.0 mcg/mL:?? AUC/WILMER:? 523.3 --------- WILMER 1.5 mcg/mL:?? AUC/WILMER:? 348.9 WILMER 2.0 mcg/mL:?? AUC/WILMER:? 261.6 Thank you for the consult, will continue to follow. -RITIKA CURTIS, JINNYD
[2024-04-17] MEDS: CEFEPIME HCL 2 GM in 0.9 % SODIUM CHLORIDE 100 ML IV (14:58)
[2024-04-17] MEDS: VANCOMYCIN/WATER FOR INJ (PEG) 1.5 GM/300 ML PIGGYBACK IV (15:30)
--- NOTE | 2024-04-17 19:25 | PC.NURSE ---
pt resting supine in bed. aspiration of the left hip completed today with swabs and eval of fluids. irrigation and debridement scheduled for tomorrow. consent signed and on the chart. very adamant about smoking a cigarette. educated on need to stay on the floor at all times and nicotine patches requested via overnight pharmacy. complained of pain intermittently throughout the day, treated per aug. abx given per aug. no other complaints at this time. call light within reach.
[2024-04-17] MEDS: NICOTINE 21MG/24HR PATCH 21 MG TD (19:53)
[2024-04-17] MEDS: ENOXAPARIN 40MG/0.4ML SYRINGE 40 MG SUBCUT (19:53)
[2024-04-18] VITALS (24 sets, daily range): BP systolic 110–174; BP diastolic 63–105; PULSE 59–86; RESP 12–18; TEMP 36.2–37; O2SAT 94–99; BMI 25.7
[2024-04-18] MEDS: CEFEPIME HCL 2 GM in 0.9 % SODIUM CHLORIDE 100 ML IV ×2 (02:26→16:58)
[2024-04-18] MEDS: VANCOMYCIN/WATER FOR INJ (PEG) 1.5 GM/300 ML PIGGYBACK IV ×2 (02:27→17:40)
[2024-04-18] MEDS: KETOROLAC 30MG/ML VIAL 30 MG IV ×3 (06:45→22:54)
[2024-04-18 07:13] LABS: Basophils # 0.1 K/mm3 (0-0.2); Basophils % 0.8 % (0.1-2.0); Eosinophils # 0.2 K/mm3 (0.0-0.4); Eosinophils % 3.6 % (0.1-12.0); Hemoglobin 12.2 g/dL (14.1-18.0); Lymphocytes # 1.9 K/mm3 (0.7-4.5); Lymphocytes % 30.1 % (10-50); Mean Corpuscular HGB Conc 33.8 g/dL (31.8-35.4); Mean Corpuscular Hemoglobin 30.6 pg (27.0-31.2); Mean Corpuscular Volume 90.4 fl (80-94); Mean Platelet Volume 8.1 fl (7.4-10.4); Monocytes # 0.7 K/mm3 (0.1-1.0); Monocytes % 10.6 % (1.7-9.3); Neutrophils # 3.5 K/mm3 (1.8-7.8); Neutrophils % 54.9 % (37.0-80.0); Platelet Count 199 K/mm3 (142-424); Red Blood Count 3.98 M/mm3 (4.60-6.20); Red Cell Distribution Width 13.6 % (11.5-17.5); White Blood Count 6.3 K/mm3 (4.8-10.8)
[2024-04-18 07:38] LABS: Alanine Aminotransferase 12 U/L (12-78); Albumin Level 3.3 g/dl (3.5-5.0); Albumin/Globulin Ratio 1.3 (1.1-1.8); Alkaline Phosphatase 59 U/L (38-126); Anion Gap 11.3 mEq/L (5-15); Aspartate Amino Transferase 19 U/L (17-59); Bilirubin,Total 0.4 mg/dl (0.2-1.3); Blood Urea Nitrogen 21 mg/dl (9-20); Carbon Dioxide 22 mmol/L (22.0-30.0); Chloride 110 mmol/L (98-107); Creatinine Clearance Estimated 112 mL/min (50-200); Estimated Glomerular Filt Rate 99 ml/min (>60); GFR (African American) 120 ML/MIN (>60); Globulin 2.6 g/dL (1.3-3.2); Glucose 69 mg/dl (74-100); Potassium 4.3 mmoL/L (3.5-5.1); Sodium 139 mmol/L (136-145); Total Protein,Serum 5.9 g/dl (6.3-8.2)
--- NOTE | 2024-04-18 09:47 | EXP.ANES.II ---
[facility] Anesthesia Record Part II Anesthesia Record Part II Discharge Time: 11:30 Destination: Second Floor PACU nurse assessment reviewed?: Yes Patient Condition:: Good Anesthesia Complications:: None Swallowing reflex intact?: Yes Airway Patency: Patent Cyanosis?: No Blood Pressure: 110/73 SaO2: 96 Respiratory Rate: 16 Pulse Rate: 65 Temperature: 97.7 F Mental Status: Alert & Oriented Pain level:: 0 Nausea and/or vomitting:: None Intake, IV Amount: 0 Hydration: Adequate
[2024-04-18 11:14] LABS: HCV Ab Non Reactive (Non Reactive)
[2024-04-18] MEDS: 0.9 % SODIUM CHLORIDE 1000ML 1,000 ML 75 ML IV (11:19)
--- NOTE | 2024-04-18 15:34 | P.PNANES_ITS ---
[facility] Disclaimer: The information contained in this section may have been updated after the patient was seen, as this information can be updated by other users. 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 current occupational exposures/hazards: No caffeine: Yes [facility] Anesthesia Checklist Patient Identification Patient Identification: Verbal (Name & ) Structural Data Admitted From: Inpatient Planned Operative Procedure/s: I/d l hip Consent for Planned Operative Procedure(s) Verified: Yes NPO Status Verified Time NPO: 00:00 Additional verifications Anesthesia Reactions: No Airway Assessment Mallampati Score:: Class II C-Spine Mobility Assessed: Yes TMJ Mobility Assessed: Yes Dentition: Edentulous Neurological Assessment Level of Consciousness: Awake, Alert and Appropriate Anesthesia Plan Anesthesia Risk discussed: Yes Anesthesia Plan: Verified ASA Class: II Anesthesia Type: General
--- NOTE | 2024-04-18 15:58 | P.OP_ITS ---
Date of procedure: 04/18/24 Pre-op Diagnosis:: Septic arthritis left hip Post-op Diagnosis:: Same Procedure performed:: Irrigation and debridement left hip Surgeon:: Dallas Miller DO Cold Type Artist(s):: Aquilino ZHANG FOREST AND CONSERVATION WORKER:: Mario Peraza Anesthesia: GETA Estimated blood loss (mL): 0 Operative findings:: Purulence within the hip capsule Operative note:: Patient was identified preoperatively. Left hip marked with yes and my initials. Then transported operative suite. Placed upon upon the operating bed. General anesthesia was administered and airway secured. The left hip was then placed open patient was placed in a lateral position with the hip mukherjee and all bony prominences well-padded. Axillary roll placed. Left hip was then prepped and draped normal sterile fashion. Once prepped and draped final operative timeout performed to identify proper patient procedure and extremity. Everyone involved the case agreed. There is no counter indications to beginning. Marking pen was used to najma plan incision over the lateral aspect of the hip. Ioban dressing placed. Incision was made through skin careful dissection is taken down to the IT band. No purulence was seen in this level. The IT band was cut sharply in line with the femur. To expose the abductors of the hip. No purulence was seen at this level. Standard abductor peel was performed to expose the hip capsule. No purulence was seen at this level. Upon entering the hip capsule however purulent fluid came from the hip capsule. Cultures were taken. Capsulotomy was performed debridement was then performed in this area. Then irrigation was followed with 9000 cc of saline. Once irrigation was complete capsule was left open and the abductors repaired with #5 Ethibond suture IT band repair with a running #1 strata fix suture deep layers with 0 Vicryl subcutaneous with 2-0 Vicryl and surgical clips in the skin for closure. Condition: stable Disposition: PACU Specimens:: Intraoperative cultures Complications:: None apparent
--- NOTE | 2024-04-18 16:05 | P.PNANES_ITS ---
[facility] Anesthesia Record Part I Anesthesia Record I Intake, IV Amount: 1,500 Hydration: Adequate Estimated blood loss (mL): 20 Urine output (mL): 300 Blood Pressure: 127/80 SaO2: 97 Pulse Rate: 70 Airway Patency: Patent Respiratory Rate: 12 Temperature: 98 F Patient is:: Awake and Stable Stable to PACU at:: 16:00
[2024-04-18] MEDS: MORPHINE 2MG/ML SYRINGE 2 MG IV (16:09)
[2024-04-18 16:13] LABS: Microscopic,Cath URINE MICROSCOPIC (MICROSCOPIC)
[2024-04-18] MEDS: HYDROMORPHONE 2MG/ML SYRINGE 0.5 MG IV ×4 (16:16→16:36)
[2024-04-18 16:41] LABS: Appearance,Urine/Cath CLEAR (Clear); Bilirubin,Cath Negative (Negative); Blood, Urine/Cath 2+ (Negative); Color,Urine/Cath YELLOW (Yellow); Glucose,Urine/Cath (UA) Negative (Negative); Ketones,Urine/Cath Negative (Negative); Leukocyte Esterase,Cath Negative (Negative); Nitrate,Cath Negative (Negative); Protein,Urine/Cath Negative (Negative); Specific Gravity, Urine/Cath >= 1.030 (1.005-1.030); Urobilinogen,Cath 0.2 EU/dl (0.2)
--- NOTE | 2024-04-18 16:51 | P.PNANES_ITS ---
[facility] Disclaimer: The information contained in this section may have been updated after the patient was seen, as this information can be updated by other users. 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 occupational exposures/hazards: No caffeine: Yes [facility] Anesthesia Checklist Patient Identification Patient Identification: Verbal (Name & ) Structural Data Admitted From: Inpatient Planned Operative Procedure/s: i/d hip Consent for Planned Operative Procedure(s) Verified: Yes NPO Status Verified Time NPO: 00:00 Additional verifications Anesthesia Reactions: No Airway Assessment Mallampati Score:: Class II C-Spine Mobility Assessed: Yes TMJ Mobility Assessed: Yes Dentition: Edentulous Neurological Assessment Level of Consciousness: Awake, Alert and Appropriate Anesthesia Plan Anesthesia Risk discussed: Yes Anesthesia Plan: Verified ASA Class: II Anesthesia Type: General
[2024-04-18] MEDS: HYDROCODONE/APAP 5/325 MG TABLET 2 TAB PO ×2 (17:02→20:47)
--- NOTE | 2024-04-18 18:31 | PC.NURSE ---
PT HAS DONE FAIR THIS SHIFT. HE HAS REPORTED MORE PAIN THAN THIS MORNING AFTER HIS I&D AND STATES THAT THE PAIN MEDICATION HAS NOT HELPED MUCH. THIS RN EDUCATED PT ON HOW OFTEN HE CAN RECEIVE PAIN MEDICATION AND ENCOURAGED PT TO TAKE PAIN MEDS TO GET HIS PAIN BETTER UNDER CONTROL. OTHER PAIN RELIEVING MEASURES HAVE BEEN OFFERED BUT PT HAS REFUSED. NO OTHER NEEDS STATED AT THIS TIME.
[2024-04-18 20:34] LABS: Squamous Epithelial Ur./Cath Occasional #/hpf (0-5); Uric Acid Crystals,Ur/Cath 1+ /lpf; WBC,Urine/Cath Occasional #/hpf (0-3)
[2024-04-18 20:35] LABS: Mucus,Urine/Cath 1+ /lpf
--- NOTE | 2024-04-18 22:37 | P.PN_ITS ---
Subjective *Date: 04/18/24 *Time: 22:37 Interval history: Patient eager to have left hiip washout this morning, also eager to eat some food. Exam Data for Last 24 hours Vital signs and Labs for Last 24 Hours: Temp Pulse Resp BP Pulse Ox O2 Del Method 98.4 F 77 16 134/72 95 Room Air 04/18/24 19:05 04/18/24 20:35 04/18/24 20:35 04/18/24 20:35 04/18/24 20:35 04/18/24 21:00 Laboratory Results - last 24 hr 04/16/24 23:23: Hepatitis C Antibody Non reactive 04/18/24 05:44: WBC 6.3 D, RBC 3.98 L, Hgb 12.2 L, Hct 36.0 L, MCV 90.4, MCH 30.6, MCHC 33.8, RDW 13.6, Plt Count 199, MPV 8.1, Neut % (Auto) 54.9, Lymph % (Auto) 30.1, [place] % (Auto) 10.6 H, Eos % (Auto) 3.6, Baso % (Auto) 0.8, Neut # (Auto) 3.5, Lymph # (Auto) 1.9, [place] # (Auto) 0.7, Eos # (Auto) 0.2, Baso # (Aut o) 0.1, Sodium 139, Potassium 4.3, Chloride 110 H, Carbon Dioxide 22, Anion Gap 11.3, BUN 21 H D, Creatinine 0.80, Estimated Creat Clear 112, Estimated GFR 99, Est GFR ( Amer) 120, Glucose 69 L, Calcium 8.0 L, Total Bilirubin 0.4, AST 19, ALT 12, Alkaline Phosphatase 59, Total Protein 5.9 L, Albumin 3.3 L, Globulin 2.6, Albumin/Globulin Ratio 1.3 04/18/24 14:17: Urine Color Yellow, Urine Appearance Clear, Urine pH 6.0, Ur Specific [place] >= 1.030, Urine Protein Negative, Urine Glucose (UA) Negative, Urine Ketones Negative, Urine Blood 2+, Urine Nitrate Negative, Urine Bilirubin Negative, Urine Urobilinogen 0.2, Ur Leukocyte Esterase Negative, Urine RBC 10- 20, Urine WBC Occasional, Ur Squamous Epith Cells Occasional, Uric Acid Crystals 1+ I & O for Last 24 hours: Intake & Output 04/15/24 04/16/24 04/17/24 04/18/24 23:59 23:59 23:59 23:59 Intake Total [id number] Output Total 0 / 0 Balance [id number] Weight 82.117 kg 78.698 kg 81.556 kg Microbiology Reports for the Last 24 Hours: Microbiology 04/17/24 Unknown Hip,Left Gram Stain - Final 04/17/24 Unknown Hip,Left Gram Stain - Final 04/16/24 00:21 Blood Blood Culture - Preliminary NO GROWTH AFTER 24 HOURS 04/16/24 23:23 Blood Blood Culture - Preliminary NO GROWTH AFTER 24 HOURS Constitutional Constitutional: no acute distress *Routine HEENT Exam Head: Present normocephalic Eye: Present EOMI and PERRL ENT: Present mucous membranes moist *Routine Neck Exam Neck: Present supple; Absent lymphadenopathy *Routine Respiratory Exam Respiratory: Present CTA bilaterally *Routine Cardiovascular Exam Cardiovascular: Present RRR *Routine Abdominal Exam Abdominal: Present soft and normoactive bowel sounds; Absent tenderness *Routine Extremities Exam Extremities: Absent cyanosis, clubbing or edema *Routine Skin Exam Skin: Present warm; Absent rash *Routine Neurological Exam Neurological: Present alert and oriented X3 Assessment and Plan *Assessment and plan (1) Acute pain of left hip: Status: Acute Category: Medical Code(s): M25.552 - Pain in left hip (2) Septic arthritis: Status: Acute Qualifiers: Laterality: left Septic arthritis location: hip Category: Medical Code(s): M00.9 - Pyogenic arthritis, unspecified Plan Fabian Jenkins is a 58-year-old male with a medical history significant for right hip septic arthritis s/p arthrotomy about 25 years ago, 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 He states he had been fine until Tuesday when he started abruptly in the left hip with some radiation towards his knee. Denies trauma, or tweaking it. 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 Denies fever/chills, fatigue, IV drug use. Workup in the ED significant for WBC 12.1. CT abdomen/pelvis shows left hip joint effusion and 3.7 cm enhancing right hepatic lobe lesion. Orthopedic surgery was consulted by the ED who recommended admission for arthrocentesis and potential washout. Case discussed with ED provider and decision was made to admit patient for left hip septic arthritis. #Left hip septic arthritis ? Follow-up hip MRI does show moderate left hip joint effusion with edema and inflammation suggestive of septic arthritis. ? Orthopedic surgery following, s/p irrigation and debridement of left hip. Significant purulence drained. Cultures obtained. ? Vancomycin, cefepime day 2 pending cultures. ? Blood cultures NGTD. - Follow-up wound cultures. ? Pain control with Tylenol, [place]. ? Vital signs stable. White count normal. DVT prophylaxis: Lovenox 40. Plan to restart after surgery tomorrow. N.p.o. after midnight
[2024-04-19] VITALS (7 sets, daily range): BP systolic 119–168; BP diastolic 63–87; PULSE 54–80; RESP 15–20; TEMP 36.2–36.8; O2SAT 94–99; BMI 25.4
[2024-04-19] MEDS: CEFEPIME HCL 2 GM in 0.9 % SODIUM CHLORIDE 100 ML IV ×2 (01:38→13:42)
[2024-04-19] MEDS: HYDROCODONE/APAP 5/325 MG TABLET 2 TAB PO ×2 (02:59→08:14)
[2024-04-19] MEDS: VANCOMYCIN/WATER FOR INJ (PEG) 1.5 GM/300 ML PIGGYBACK IV ×2 (05:43→16:27)
[2024-04-19] MEDS: KETOROLAC 30MG/ML VIAL 30 MG IV ×2 (05:45→15:57)
[2024-04-19 06:37] LABS: Basophils % 0.1 % (0.1-2.0); Eosinophils % 0.1 % (0.1-12.0); Hematocrit 35.1 % (42.0-52.0); Hemoglobin 11.4 g/dL (14.1-18.0); Lymphocytes # 1.3 K/mm3 (0.7-4.5); Lymphocytes % 8.7 % (10-50); Mean Corpuscular HGB Conc 32.6 g/dL (31.8-35.4); Mean Corpuscular Hemoglobin 29.8 pg (27.0-31.2); Mean Corpuscular Volume 91.2 fl (80-94); Mean Platelet Volume 8.2 fl (7.4-10.4); Monocytes # 0.8 K/mm3 (0.1-1.0); Monocytes % 5.5 % (1.7-9.3); Neutrophils # 12.7 K/mm3 (1.8-7.8); Neutrophils % 85.6 % (37.0-80.0); Platelet Count 237 K/mm3 (142-424); Red Blood Count 3.84 M/mm3 (4.60-6.20); Red Cell Distribution Width 13.5 % (11.5-17.5); White Blood Count 14.8 K/mm3 (4.8-10.8)
[2024-04-19 06:41] LABS: Alanine Aminotransferase 18 U/L (12-78); Albumin Level 3.1 g/dl (3.5-5.0); Albumin/Globulin Ratio 1.2 (1.1-1.8); Alkaline Phosphatase 67 U/L (38-126); Anion Gap 10.6 mEq/L (5-15); Aspartate Amino Transferase 22 U/L (17-59); Bilirubin,Total 0.4 mg/dl (0.2-1.3); Blood Urea Nitrogen 19 mg/dl (9-20); Calcium 8.2 mg/dl (8.4-10.2); Carbon Dioxide 21 mmol/L (22.0-30.0); Chloride 111 mmol/L (98-107); Creatinine Clearance Estimated 115 mL/min (50-200); Estimated Glomerular Filt Rate 99 ml/min (>60); GFR (African American) 120 ML/MIN (>60); Globulin 2.6 g/dL (1.3-3.2); Glucose 131 mg/dl (74-100); Potassium 4.6 mmoL/L (3.5-5.1); Sodium 138 mmol/L (136-145); Total Protein,Serum 5.7 g/dl (6.3-8.2)
[2024-04-19 06:46] LABS: MANUAL DIFFERENTIAL MANUAL DIFFERENTIAL (MANUAL DIFF)
--- NOTE | 2024-04-19 06:51 | PC.NURSE ---
Alert and oriented. Pain control throughout the night. Dressing CDI. uses urinal throughout the night. Call light in reach.
[2024-04-19 07:10] LABS: Lymphocytes % 8 % (10-50); Monocytes % 4 % (2-9); Neutrophils % 88 % (42-76); Platelet Estimate Normal; RBC Morphology Normal; Total Cells Counted 100
[2024-04-19] MEDS: ENOXAPARIN 40MG/0.4ML SYRINGE 40 MG SUBCUT (08:12)
[2024-04-19] MEDS: OXYCODONE 5MG W/APAP 325MG TABLET 2 EACH PO ×2 (11:44→20:41)
--- NOTE | 2024-04-19 12:04 | P.PNANES_ITS ---
[facility] Anesthesia Record Part II Anesthesia Record Part II Discharge Time: 16:45 Destination: Second Floor PACU nurse assessment reviewed?: Yes Patient Condition:: Good Anesthesia Complications:: None Swallowing reflex intact?: Yes Airway Patency: Patent Cyanosis?: No Blood Pressure: 140/63 SaO2: 99 Respiratory Rate: 15 Pulse Rate: 59 Temperature: 97.1 F Mental Status: Alert & Oriented Pain level:: 6 Nausea and/or vomitting:: None Intake, IV Amount: 0 Hydration: Adequate
[2024-04-19 14:53] LABS: Vancomycin,Trough 14.3 ug/mL (5.0-10.0)
--- NOTE | 2024-04-19 15:32 | P.CONPHA_ITS ---
Pharmacy Consult Date: 04/19/24 Time: 15:33 Referring provider: DR. MARQUES Reason for Consult:: VANCOMCYIN TROUGH LEVEL Allergies Allergy/AdvReac Type Severity Reaction Status Date / Time No Known Allergies Allergy Verified 12/23/19 04:01 Home Medications ?Medication ?Instructions ?Recorded ?Confirmed ?Type No Known Home Medications 04/17/24 04/17/24 History New Prescriptions to Start Prescriptions: Height: 1.78 m Weight: 80.739 kg Laboratory Results:: Laboratory Results - last 24 hr 04/18/24 14:17: Urine Color Yellow, Urine Appearance Clear, Urine pH 6.0, Ur Specific [place] >= 1.030, Urine Protein Negative, Urine Glucose (UA) Negative, Urine Ketones Negative, Urine Blood 2+, Urine Nitrate Negative, Urine Bilirubin Negative, Urine Urobilinogen 0.2, Ur Leukocyte Esterase Negative, Urine RBC 10- 20, Urine WBC Occasional, Ur Squamous Epith Cells Occasional, Uric Acid Crystals 1+ 04/19/24 05:31: WBC 14.8 H D, RBC 3.84 L, Hgb 11.4 L, Hct 35.1 L, MCV 91.2, MCH 29.8, MCHC 32.6, RDW 13.5, Plt Count 237, MPV 8.2, Neut % (Auto) 85.6 H, Lymph % (Auto) 8.7 L, [place] % (Auto) 5.5, Eos % (Auto) 0.1, Baso % (Auto) 0.1, Neut # (Auto) 12.7 H, Lymph # (Auto) 1.3, [place] # (Auto) 0.8, Eos # (Auto) 0.0, Baso # (Auto) 0.0, Total Counted 100, Neutrophils % (Manual) 88 H, Lymphocytes % (Manual) 8 L, Monocytes % (Manual) 4, Platelet Estimate Normal, RBC Morphology Normal, Sodium 138, Potassium 4.6, Chloride 111 H, Carbon Dioxide 21 L, Anion Gap 10.6, BUN 19, Creatinine 0.80, Estimated Creat Clear 115, Estimated GFR 99, Est GFR ( Amer) 120, Glucose 131 H D, Calcium 8.2 L, Total Bilirubin 0.4, AST 22, ALT 18 D, Alkaline Phosphatase 67, Total Protein 5.7 L, Albumin 3.1 L, Globulin 2.6, Albumin/Globulin Ratio 1.2 04/19/24 14:13: Vancomycin Trough 14.3 H Assessment and Plan Assessment and plan all Dx Assessment and Plan for all problems:: PATIENT'S VANCOMYCIN TROUGH LEVEL WAS 14.3 MCG/ML TODAY. RECOMMENDED PATIENT CONTINUE WITH VANCOMYCIN 1500 MG Q12H AT THIS TIME.
--- NOTE | 2024-04-19 15:57 | EXP.SURG.PN ---
Subjective Narrative: Patient seen lying in bed, comfortable. C/o pain, but states that change in pain meds today was helpful. Denies DARNELL, dizziness, CP, SOB, n/v, calf pain, paresthesias above baseline. States he walked with PT today without too much difficulty. Exam Data for Last 24 hours Vital signs and Labs for Last 24 Hours: Temp Pulse Resp BP Pulse Ox O2 Del Method 98.2 F 64 15 140/85 96 Room Air 04/19/24 12:00 04/19/24 12:00 04/19/24 12:05 04/19/24 12:00 04/19/24 12:00 04/19/24 14:43 Laboratory Results - last 24 hr 04/18/24 14:17: Urine Color Yellow, Urine Appearance Clear, Urine pH 6.0, Ur Specific [place] >= 1.030, Urine Protein Negative, Urine Glucose (UA) Negative, Urine Ketones Negative, Urine Blood 2+, Urine Nitrate Negative, Urine Bilirubin Negative, Urine Urobilinogen 0.2, Ur Leukocyte Esterase Negative, Urine RBC 10-20, Urine WBC Occasional, Ur Squamous Epith Cells Occasional, Uric Acid Crystals 1+ 04/19/24 05:31: WBC 14.8 H D, RBC 3.84 L, Hgb 11.4 L, Hct 35.1 L, MCV 91.2, MCH 29.8, MCHC 32.6, RDW 13.5, Plt Count 237, MPV 8.2, Neut % (Auto) 85.6 H, Lymph % (Auto) 8.7 L, [place] % (Auto) 5.5, Eos % (Auto) 0.1, Baso % (Auto) 0.1, Neut # (Auto) 12.7 H, Lymph # (Auto) 1.3, [place] # (Auto) 0.8, Eos # (Auto) 0.0, Baso # (Auto) 0.0, Total Counted 100, Neutrophils % (Manual) 88 H, Lymphocytes % (Manual) 8 L, Monocytes % (Manual) 4, Platelet Estimate Normal, RBC Morphology Normal, Sodium 138, Potassium 4.6, Chloride 111 H, Carbon Dioxide 21 L, Anion Gap 10.6, BUN 19, Creatinine 0.80, Estimated Creat Clear 115, Estimated GFR 99, Est GFR ( Amer) 120, Glucose 131 H D, Calcium 8.2 L, Total Bilirubin 0.4, AST 22, ALT 18 D, Alkaline Phosphatase 67, Total Protein 5.7 L, Albumin 3.1 L, Globulin 2.6, Albumin/Globulin Ratio 1.2 04/19/24 14:13: Vancomycin Trough 14.3 H I & O for Last 24 hours: Intake & Output 04/16/24 04/17/24 04/18/24 04/19/24 23:59 23:59 23:59 23:59 Intake Total 1515 / 2155 2410 / 2410 900 / 900 Output Total 400 / 400 500 / 500 Balance 1515 / 2155 2009 400 / 400 Weight 82.117 kg 78.698 kg 81.556 kg 80.739 kg Microbiology Reports for the Last 24 Hours: Microbiology 04/16/24 00:21 Blood Blood Culture - Preliminary NO GROWTH AFTER 48 HOURS 04/16/24 23:23 Blood Blood Culture - Preliminary NO GROWTH AFTER 48 HOURS 04/18/24 15:30 Hip,Left - Left Gram Stain - Preliminary Detailed Lower Extremity Exam Comments: L hip: Dressing C/D/I. Thigh Soft, calf soft nontender. SILT 1st DWS/PA. +GS/TA motor. <2 sec cap refill at all distal toes. Progress Note: A&P Assessment and plan (1) Acute pain of left hip: Status: Acute Assessment and plan: PT/OT: WBAT to LLE, device PRN ambulation. Pain control Abx: await cultures for final abx recs. Currently on vanco and cefepime Ice PRN swelling. FUrther care per medical team, appreciate input. (2) Septic arthritis: Status: Acute
[2024-04-19] MEDS: OXYCODONE 5MG W/APAP 325MG TABLET 1 EACH PO (15:58)
--- NOTE | 2024-04-19 16:23 | PC.NURSE ---
PT HAS DONE BETTER THIS SHIFT. PRN PAIN MEDS CHANGED AND HE HAS VOICED THAT THE NEW MEDS HAVE HELPED HIS PAIN BETTER. HE IS EAGER TO GET UP. ENCOURAGED TO AMBULATE WITH HELP TOLERATED. VSS.
--- NOTE | 2024-04-19 22:29 | EXP.PN ---
Subjective *Date: 04/19/24 *Time: 22:29 Interval history: Patient is doing well, still has pain in left hip but attempting more mobilization with it. Exam Data for Last 24 hours Vital signs and Labs for Last 24 Hours: Temp Pulse Resp BP Pulse Ox O2 Del Method 97.9 F 65 18 119/73 96 Room Air 04/19/24 20:00 04/19/24 20:00 04/19/24 20:00 04/19/24 20:00 04/19/24 20:00 04/19/24 20:00 Laboratory Results - last 24 hr 04/19/24 05:31: WBC 14.8 H D, RBC 3.84 L, Hgb 11.4 L, Hct 35.1 L, MCV 91.2, MCH 29.8, MCHC 32.6, RDW 13.5, Plt Count 237, MPV 8.2, Neut % (Auto) 85.6 H, Lymph % (Auto) 8.7 L, [place] % (Auto) 5.5, Eos % (Auto) 0.1, Baso % (Auto) 0.1, Neut # (Auto) 12.7 H, Lymph # (Auto) 1.3, [place] # (Auto) 0.8, Eos # (Auto) 0.0, Baso # (Auto) 0.0, Total Counted 100, Neutrophils % (Manual) 88 H, Lymphocytes % (Manual) 8 L, Monocytes % (Manual) 4, Platelet Estimate Normal, RBC Morphology Normal, Sodium 138, Potassium 4.6, Chloride 111 H, Carbon Dioxide 21 L, Anion Gap 10.6, BUN 19, Creatinine 0.80, Estimated Creat Clear 115, Estimated GFR 99, Est GFR ( Amer) 120, Glucose 131 H D, Calcium 8.2 L, Total Bilirubin 0.4, AST 22, ALT 18 D, Alkaline Phosphatase 67, Total Protein 5.7 L, Albumin 3.1 L, Globulin 2.6, Albumin/Globulin Ratio 1.2 04/19/24 14:13: Vancomycin Trough 14.3 H I & O for Last 24 hours: Intake & Output 04/16/24 04/17/24 04/18/24 04/19/24 23:59 23:59 23:59 23:59 Intake Total 1515 / 2155 2410 / 2410 1260 / 1260 Output Total 400 / 400 1700 / 1700 Balance 1515 / 2155 2009 -440 / -440 Weight 82.117 kg 78.698 kg 81.556 kg 80.739 kg Microbiology Reports for the Last 24 Hours: Microbiology 04/18/24 15:30 Hip,Left - Left Gram Stain - Preliminary 04/18/24 15:30 Hip,Left - Left Surgical Biopsy Culture - Preliminary NO GROWTH AFTER 24 HOURS 04/16/24 00:21 Blood Blood Culture - Preliminary NO GROWTH AFTER 48 HOURS 04/16/24 23:23 Blood Blood Culture - Preliminary NO GROWTH AFTER 48 HOURS Constitutional Constitutional: no acute distress *Routine HEENT Exam Head: Present normocephalic Eye: Present EOMI and PERRL ENT: Present mucous membranes moist *Routine Neck Exam Neck: Present supple; Absent lymphadenopathy *Routine Respiratory Exam Respiratory: Present CTA bilaterally *Routine Cardiovascular Exam Cardiovascular: Present RRR *Routine Abdominal Exam Abdominal: Present soft and normoactive bowel sounds; Absent tenderness *Routine Extremities Exam Extremities: Absent cyanosis, clubbing or edema Comments: Left hip incision site CDI. No drainage, and covered with dressing. 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 He states he had been fine until Tuesday when he started abruptly in the left hip with some radiation towards his knee. Denies trauma, or tweaking it. 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 Denies fever/chills, fatigue, IV drug use. Workup in the ED significant for WBC 12.1. CT abdomen/pelvis shows left hip joint effusion and 3.7 cm enhancing right hepatic lobe lesion. Orthopedic surgery was consulted by the ED who recommended admission for arthrocentesis and potential washout. Case discussed with ED provider and decision was made to admit patient for left hip septic arthritis. #Left hip septic arthritis ? Follow-up hip MRI does show moderate left hip joint effusion with edema and inflammation suggestive of septic arthritis. ? Orthopedic surgery following, s/p irrigation and debridement of left hip. Significant purulence drained. Cultures obtained. ? Vancomycin, cefepime day 3 pending cultures. ? Blood cultures NGTD. - Follow-up wound cultures. ? Pain control with Tylenol, [place]. ? Vital signs stable. White count normal. - Patient is doing well, still has pain in left hip but attempting more mobilization with it. - Discussed with otho, WBAT with walker. - PT/OT consulted, pending recommendation. - Patient is self pay, so hoping to dc on oral abx if possible. #History of DVT - Provoved DVTs while stationary for ~1 prior to left meniscal tear repair many years ago. - No need for further further anticoagulation at this time, has not been on it for some time. DVT prophylaxis: Lovenox 40. Plan to restart after surgery tomorrow. N.p.o. after midnight
[2024-04-20] MEDS: KETOROLAC 30MG/ML VIAL 30 MG IV ×2 (01:58→17:54)
[2024-04-20] MEDS: SODIUM CHLORIDE 0.9% 10ML FLUSH SYRINGE 10 ML IV (02:00)
[2024-04-20] MEDS: CEFEPIME HCL 2 GM in 0.9 % SODIUM CHLORIDE 100 ML IV ×2 (02:03→12:45)
[2024-04-20 04:00] VITALS: BP 143/95; PULSE 50; RESP 16; TEMP 36.8; O2SAT 96; BMI 27.3
[2024-04-20] MEDS: VANCOMYCIN/WATER FOR INJ (PEG) 1.5 GM/300 ML PIGGYBACK IV ×2 (05:18→17:47)
--- NOTE | 2024-04-20 05:36 | PC.NURSE ---
04/20/24 0520, Pt. resting awake and sitting upin bed. . Alert and orientated x 4. Pt. has some left hip pain but states he does not want pain meds at this time. He has been moving around in the bed able to position his hip/leg in comfortable postion. Antibiotics infused overnight. vital signs stable. Personal items and call garces in reach.
[2024-04-20 06:34] LABS: Basophils # 0.1 K/mm3 (0-0.2); Basophils % 0.7 % (0.1-2.0); Eosinophils # 0.2 K/mm3 (0.0-0.4); Eosinophils % 2.2 % (0.1-12.0); Hematocrit 34.1 % (42.0-52.0); Hemoglobin 11.5 g/dL (14.1-18.0); Lymphocytes # 2.8 K/mm3 (0.7-4.5); Lymphocytes % 27.8 % (10-50); Mean Corpuscular HGB Conc 33.7 g/dL (31.8-35.4); Mean Corpuscular Volume 89.2 fl (80-94); Mean Platelet Volume 8.2 fl (7.4-10.4); Monocytes # 0.6 K/mm3 (0.1-1.0); Monocytes % 6.1 % (1.7-9.3); Neutrophils # 6.3 K/mm3 (1.8-7.8); Neutrophils % 63.2 % (37.0-80.0); Platelet Count 238 K/mm3 (142-424); Red Blood Count 3.83 M/mm3 (4.60-6.20); Red Cell Distribution Width 13.8 % (11.5-17.5); White Blood Count 9.9 K/mm3 (4.8-10.8)
[2024-04-20 06:49] LABS: Alanine Aminotransferase 15 U/L (12-78); Albumin Level 3.1 g/dl (3.5-5.0); Albumin/Globulin Ratio 1.1 (1.1-1.8); Alkaline Phosphatase 59 U/L (38-126); Anion Gap 11.2 mEq/L (5-15); Aspartate Amino Transferase 22 U/L (17-59); Bilirubin,Total 0.4 mg/dl (0.2-1.3); Blood Urea Nitrogen 19 mg/dl (9-20); Calcium 8.1 mg/dl (8.4-10.2); Carbon Dioxide 22 mmol/L (22.0-30.0); Chloride 110 mmol/L (98-107); Creatinine Clearance Estimated 124 mL/min (50-200); Estimated Glomerular Filt Rate 99 ml/min (>60); GFR (African American) 120 ML/MIN (>60); Globulin 2.8 g/dL (1.3-3.2); Glucose 83 mg/dl (74-100); Potassium 4.2 mmoL/L (3.5-5.1); Sodium 139 mmol/L (136-145); Total Protein,Serum 5.9 g/dl (6.3-8.2)
--- NOTE | 2024-04-20 07:55 | EXP.PHA.PN ---
Subjective *Date: 04/20/24 *Time: 07:55 Medical Exam Vital signs and Labs for Last 24 Hours: Vital Signs Temp Pulse Resp BP Pulse Ox O2 Del Method 04/20/24 05:00 Room Air 04/20/24 04:00 98.2 F 50 L 16 143/95 H 96 Room Air 04/20/24 03:00 Room Air 04/20/24 01:00 Room Air 04/19/24 23:32 98.1 F 54 L 16 168/77 H 94 L Room Air 04/19/24 23:00 Room Air 04/19/24 21:00 Room Air 04/19/24 20:00 Room Air 04/19/24 20:00 97.9 F 65 18 119/73 96 Room Air 04/19/24 19:00 Room Air 04/19/24 17:00 Room Air 04/19/24 16:00 98.1 F 80 20 147/87 H 98 Room Air 04/19/24 14:43 Room Air 04/19/24 13:00 Room Air 04/19/24 12:05 15 04/19/24 12:00 98.2 F 64 19 140/85 96 Room Air 04/19/24 11:00 Room Air 04/19/24 09:00 Room Air 04/19/24 08:00 Room Air 04/19/24 08:00 98.3 F 60 19 130/75 95 Room Air Intake and Output 04/19/24 04/19/24 04/20/24 15:59 23:59 07:59 Intake Total 900 / 1260 360 / 1260 Output Total 1949 145 / 1949 225 / 225 Balance 900 / -690 -1090 / -690 -225 / -225 Intake: Intake, Oral Amount 900 / 1260 360 / 1260 Intake, Total IV Amount 0 / 0 Output: Output, Urine Amount 1949 145 / 1950 225 / 225 Other: Number of Voids 0 1 Number of Unmeasured Voids 0 0 Weight 80.739 kg 86.863 kg Patient Weight 04/20/24 23:59 Weight 86.863 kg Laboratory Results - last 24 hr 04/19/24 14:13: Vancomycin Trough 14.3 H 04/20/24 05:17: WBC 9.9 D, RBC 3.83 L, Hgb 11.5 L, Hct 34.1 L, MCV 89.2, MCH 30.0, MCHC 33.7, RDW 13.8, Plt Count 238, MPV 8.2, Neut % (Auto) 63.2, Lymph % (Auto) 27.8, [place] % (Auto) 6.1, Eos % (Auto) 2.2, Baso % (Auto) 0.7, Neut # (Auto) 6.3, Lymph # (Auto) 2.8, [place] # (Auto) 0.6, Eos # (Auto) 0.2, Baso # (Auto) 0.1, Sodium 139, Potassium 4.2, Chloride 110 H, Carbon Dioxide 22, Anion Gap 11.2, BUN 19, Creatinine 0.80, Estimated Creat Clear 124, Estimated GFR 99, Est GFR ( Amer) 120, Glucose 83 D, Calcium 8.1 L, Total Bilirubin 0.4, AST 22, ALT 15, Alkaline Phosphatase 59, Total Protein 5.9 L, Albumin 3.1 L, Globulin 2.8, Albumin/Globulin Ratio 1.1 I & O for Labs for Last 24 Hours: Intake & Output 04/17/24 04/18/24 04/19/24 04/20/24 23:59 23:59 23:59 23:59 Intake Total 1515 / 2155 2410 / 2410 1260 / 1260 Output Total 400 / 400 1950 / 1950 225 / 225 Balance 1515 / 2155 2009 -690 / -690 -225 / -225 Weight 78.698 kg 81.556 kg 80.739 kg 86.863 kg Microbiology Reports for the Last 24 Hours: Microbiology 04/18/24 15:30 Hip,Left - Left Gram Stain - Preliminary 04/18/24 15:30 Hip,Left - Left Surgical Biopsy Culture - Preliminary NO GROWTH AFTER 24 HOURS The patient's infection will respond to the chosen ABx?: Yes Is the patient receiving the right drug, dose, and route?: Yes Could a more targeted ABx be ordered?: No (WBC DECREASED, AFEBRILE, CX PENDING STILL.)
[2024-04-20 08:00] VITALS: BP 135/80; PULSE 52; RESP 14; TEMP 36.7; O2SAT 96
[2024-04-20] MEDS: ENOXAPARIN 40MG/0.4ML SYRINGE 40 MG SUBCUT (08:34)
[2024-04-20 09:11] LABS: C-Reactive Protein 35.3 mg/L (0-4)
--- NOTE | 2024-04-20 09:27 | HMH.PTEV ---
Physical Therapy Evaluation Rehab PT IP Evaluation Start: 04/19/24 22:25 Freq: ONCE Status: Active Protocol: Document 04/20/24 09:23 SOPHIE (Rec: 04/20/24 09:27 SOPHIE [id number]) Subjective/History History History Pt is a 58 y/o male who is s/p Irrigation and debridement left hip. Pt is WBAT. Subjective Subjective Pt lives home alone with 1 MIKAL home. Pt was IND with all mobility including driving prior to admission. Pt does not own a RW. New diagnosis of cancer in past 12 No months? Rehab PT IP Eval Objective Appearance Patient Behavior Appropriate,Cooperative Patient Orientation Person,Situation Difficulty following instructions none Speech Pattern Clear Ambulation Patient Able to Ambulate Yes Ambulation Observation IP General Gait Pattern Observation Antalgic Gait Ambulation Distance (feet) 20 Ambulation Assistive Device Rolling Walker Ambulation Ability Independent Balance Ability to Arise Able, uses arms to help Sitting Balance Steady, safe Standing Balance Steady, wide stance Dynamic Sitting Balance Ability Normal Dynamic Standing Balance Ability Good Transfers Bed Transfer Ability Independent Sit to Stand Bed Transfer Ability Independent Rehab PT IP prob,goals,plan Problems Date of Evaluation: 04/20/24 Rehab Potential Rehab Potential Innapropriate for Skilled Therapy Discharge Plan PT Discharge Plan Pt safe to d/c home when deemed medically necessary d/t current level of mobility. Pt not appropriate for skilled acute care PT at this time d/t pt?s mobility being at baseline/IND. PT recommending pt use RW for pain management upon d/c. PT discussed pt's need for RW with CM. Eval Complexity Eval Charge Codes 81805 - Moderate Complexity PHYSICIAN CERTIFICATION: I certify the specified therapy services for Fabian Fink are required, authorized, and reviewed every 30 days.
[2024-04-20 09:32] LABS: Erythrocyte Sedimentation Rate 58 mm/hr (0-20)
[2024-04-20] MEDS: OXYCODONE 5MG W/APAP 325MG TABLET 2 EACH PO ×2 (09:54→14:56)
--- NOTE | 2024-04-20 10:04 | HMH.OTEV ---
OT Inpatient Evaluation Rehab OT IP Evaluation Start: 04/19/24 22:25 Freq: ONCE Status: Active Protocol: Document 04/20/24 10:00 CONSTANTINO (Rec: 04/20/24 10:03 CONSTANTINO [id number]) Rehab OT IP Assessment Subjective History Fabian Jenkins is a 58-year-old male with a medical history significant for right hip septic arthritis s/p arthrotomy about 25 years ago, provoked lower extremity DVTs and pulmonary embolism ( stationary before left knee meniscal repair) who presents with worsening left hip pain. He states he had been fine until Tuesday when he started abruptly in the left hip with some radiation towards his knee. Denies trauma, or tweaking it. 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 Denies fever/chills, fatigue, IV drug use. Workup in the ED significant for WBC 12.1. CT abdomen/pelvis shows left hip joint effusion and 3.7 cm enhancing right hepatic lobe lesion. Orthopedic surgery was consulted by the ED who recommended admission for arthrocentesis and potential washout. Case discussed with ED provider and decision was made to admit patient for left hip septic arthritis. #Left hip septic arthritis ? Follow-up hip MRI does show moderate left hip joint effusion with edema and inflammation suggestive of septic arthritis. ? Orthopedic surgery following , s/p irrigation and debridement of left hip. Significant purulence drained. Cultures obtained. ? Vancomycin, cefepime day 3 pending cultures. ? Blood cultures NGTD. - Follow-up wound cultures. ? Pain control with Tylenol, [place]. ? Vital signs stable. White count normal. - Patient is doing well, still has pain in left hip but attempting more mobilization with it. - Discussed with otho, WBAT with walker. - PT/OT consulted, pending recommendation. - Patient is self pay, so hoping to dc on oral abx if possible. #History of DVT - Provoved DVTs while stationary for ~1 prior to left meniscal tear repair many years ago. - No need for further further anticoagulation at this time, has not been on it for some time. DVT prophylaxis: Lovenox 40. Plan to restart after surgery tomorrow. N.p.o. after midnight Patient lives in 1 story home with 1-2 MIKAL. Independent with ADLs and fx'l mobility. Subjective I can get up. Analysis Patient's ADLs, functional mobility and bed mobility from supine->sit @ EOB->maneuvering within environment with usage of RW. Patient completed tasks independently. No LOB noted. Left Patient sitting upright in chair with needs met at end of session. Patient requested to sit upright next to window with call light not in reach. Notified nursing re: patient' s preference of sitting next to window with call light not within reach. Teach back successful. Objective Patient Orientation Person,Place,Name Right Upper Extremity Gross ROM WFL Left Upper Extremity Gross ROM WFL Bed Mobility bed mobility - supine/sit Assist Level Independent Transfer Training Sit/Stand Transfer,Sit/Stand/ Step Transfer,Sit/Stand/Pivot Transfer Assist Level Independent Chair Transfer Ability Independent Chair Transfer Technique Sit to/from Ambulatory Lower Body Dressing Ability Independent Rehab OT IP prob,goals,plan Problems Date of Evaluation: 04/20/24 Rehab Potential Rehab Potential Innapropriate for Skilled Therapy Equipment Needs Assistive Devices Rolling / Wheeled Walker Discharge Plan OT Discharge Plan Recommend patient to return home after medical d/c. Patient will not continue skilled OT IP services while here at [facility]. Eval Complexity Eval Charge Codes 80370 - Low Complexity PHYSICIAN CERTIFICATION: I certify the specified therapy services for Fabian Fink are required, authorized, and reviewed every 30 days.
[2024-04-20 12:00] VITALS: BP 136/88; PULSE 53; RESP 14; TEMP 36.8; O2SAT 97
--- NOTE | 2024-04-20 14:42 | PC.NURSE ---
Aox4, pain meds given once this shift, up ad jordon with walker, on RA, 18g L AC SL, receiving abx iv, DNR, L HIP drsg C/D/I.
[2024-04-20 16:00] VITALS: BP 133/84; PULSE 62; RESP 14; TEMP 37.1; O2SAT 95
[2024-04-20 19:24] VITALS: BP 133/71; PULSE 60; RESP 18; TEMP 36.9; O2SAT 94
[2024-04-20] MEDS: OXYCODONE 5MG W/APAP 325MG TABLET 1 EACH PO (20:10)
--- NOTE | 2024-04-20 21:39 | P.PN_ITS ---
Subjective *Date: 04/26/24 *Time: 11:49 Interval history: Patient is doing well today, ambulating with walker well. Pending wound cultures before dc. Exam Data for Last 24 hours Vital signs and Labs for Last 24 Hours: Temp Pulse Resp BP Pulse Ox O2 Del Method 98.4 F 60 18 133/71 94 L Room Air 04/20/24 19:24 04/20/24 19:24 04/20/24 19:24 04/20/24 19:24 04/20/24 19:24 04/20/24 21:00 Laboratory Results - last 24 hr 04/20/24 05:17: WBC 9.9 D, RBC 3.83 L, Hgb 11.5 L, Hct 34.1 L, MCV 89.2, MCH 30.0, MCHC 33.7, RDW 13.8, Plt Count 238, MPV 8.2, Neut % (Auto) 63.2, Lymph % (Auto) 27.8, Simpson % (Auto) 6.1, Eos % (Auto) 2.2, Baso % (Auto) 0.7, Neut # (Auto) 6.3, Lymph # (Auto) 2.8, Simpson # (Auto) 0.6, Eos # (Auto) 0.2, Baso # (Auto) 0.1, ESR 58 H, Sodium 139, Potassium 4.2, Chloride 110 H, Carbon Dioxide 22, Anion Gap 11.2, BUN 19, Creatinine 0.80, Estimated Creat Clear 124, Estimated GFR 99, Est GFR ( Amer) 120, Glucose 83 D, Calcium 8.1 L, Total Bilirubin 0.4, AST 22, ALT 15, Alkaline Phosphatase 59, C-Reactive Protein 35.3 H, Total Protein 5.9 L, Albumin 3.1 L, Globulin 2.8, Albumin/Globulin Ratio 1.1 I & O for Last 24 hours: Intake & Output 04/17/24 04/18/24 04/19/24 04/20/24 23:59 23:59 23:59 23:59 Intake Total 1515 / 2155 2410 / 2410 1260 / 1260 1300 / 1300 Output Total 400 / 400 1950 / 1950 525 / 525 Balance 1515 / 2155 2009 -690 / -690 775 / 775 Weight 78.698 kg 81.556 kg 80.739 kg 86.863 kg Microbiology Reports for the Last 24 Hours: Microbiology 04/18/24 15:30 Hip,Left - Left Gram Stain - Final 04/18/24 15:30 Hip,Left - Left Surgical Biopsy Culture - Preliminary NO GROWTH AFTER 48 HOURS Constitutional Constitutional: no acute distress *Routine HEENT Exam Head: Present normocephalic Eye: Present EOMI and PERRL ENT: Present mucous membranes moist *Routine Neck Exam Neck: Present supple; Absent lymphadenopathy *Routine Respiratory Exam Respiratory: Present CTA bilaterally *Routine Cardiovascular Exam Cardiovascular: Present RRR *Routine Abdominal Exam Abdominal: Present soft and normoactive bowel sounds; Absent tenderness *Routine Extremities Exam Extremities: Absent cyanosis, clubbing or edema Comments: Left hip incision site CDI. No drainage, and covered with dressing. 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 He states he had been fine until Tuesday when he started abruptly in the left hip with some radiation towards his knee. Denies trauma, or tweaking it. 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 Denies fever/chills, fatigue, IV drug use. Workup in the ED significant for WBC 12.1. CT abdomen/pelvis shows left hip joint effusion and 3.7 cm enhancing right hepatic lobe lesion. Orthopedic surgery was consulted by the ED who recommended admission for arthrocentesis and potential washout. Case discussed with ED provider and decision was made to admit patient for left hip septic arthritis. #Left hip septic arthritis ? Follow-up hip MRI does show moderate left hip joint effusion with edema and inflammation suggestive of septic arthritis. ? Orthopedic surgery following, s/p irrigation and debridement of left hip. Significant purulence drained. Cultures obtained. ? Vancomycin, cefepime day 4 pending cultures. ? 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 Patient does have risk factors, so will send out GC PCR testing. ? Blood cultures NGTD. - Follow-up wound cultures. ? Pain control with Tylenol, [place]. ? Vital signs stable. White count normal. - Patient is doing well, still has pain in left hip but attempting more mobilization with it. - Discussed with otho, WBAT with walker. - PT/OT consulted, did not recommend further rehab. Recommended rolling walker. - Patient is self pay, so hoping to dc on oral abx if possible. #History of DVT - Provoked DVTs while stationary for ~1 month prior to left meniscal tear repair many years ago. - No need for further further anticoagulation at this time, has not been on it for some time. FULL CODE DVT prophylaxis: Lovenox 40.
[2024-04-21] VITALS: BP 147/78; PULSE 55; RESP 18; TEMP 36.8; O2SAT 96
[2024-04-21] MEDS: CEFEPIME HCL 2 GM in 0.9 % SODIUM CHLORIDE 100 ML IV (02:36)
[2024-04-21] MEDS: SODIUM CHLORIDE 0.9% 10ML FLUSH SYRINGE 10 ML IV ×3 (02:39→04:36)
[2024-04-21] MEDS: KETOROLAC 30MG/ML VIAL 30 MG IV (02:44)
[2024-04-21 04:00] VITALS: BP 145/89; PULSE 51; RESP 16; TEMP 36.4; O2SAT 95; BMI 27.3
[2024-04-21] MEDS: VANCOMYCIN/WATER FOR INJ (PEG) 1.5 GM/300 ML PIGGYBACK IV (04:36)
--- NOTE | 2024-04-21 05:36 | PC.NURSE ---
04/21/24 0535: Pt. is alert and orientated x 4. Pt. c/o left hip pain. Dressing over incision is clean, dry and intact. Pt. had 2 doses of pain medication overnight. Pt. continued to have some pain after meds but didn't want any more pain meds. Pt. has been moving around in the bed changing positions, ect. . Personal items and call garces in reach.
[2024-04-21 08:00] VITALS: BP 143/89; PULSE 57; RESP 16; TEMP 36.5; O2SAT 96
[2024-04-21] MEDS: ENOXAPARIN 40MG/0.4ML SYRINGE 40 MG SUBCUT (08:29)
[2024-04-21] MEDS: OXYCODONE 5MG W/APAP 325MG TABLET 2 EACH PO (08:35)
--- NOTE | 2024-04-21 12:55 | P.DS_ITS ---
General Admission date:: 04/17/24 HPI HPI HPI: Fabian Fink is a 58-year-old male with a medical history significant for right hip septic arthritis s/p arthrotomy about 25 years ago, 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 He states he had been fine until Tuesday when he started abruptly in the left hip with some radiation towards his knee. Denies trauma, or tweaking it. 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 Denies fever/chills, fatigue, IV drug use. Workup in the ED significant for WBC 12.1. CT abdomen/pelvis shows left hip joint effusion and 3.7 cm enhancing right hepatic lobe lesion. Orthopedic surgery was consulted by the ED who recommended admission for arthrocentesis and potential washout. Case discussed with ED provider and decision was made to admit patient for left hip septic arthritis. Hospital Course Hospital Course Hospital Course: Fabian Jenkins is a 58-year-old male with a medical history significant for right hip septic arthritis s/p arthrotomy about 25 years ago, 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 He states he had been fine until Tuesday when he started abruptly in the left hip with some radiation towards his knee. Denies trauma, or tweaking it. 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 Denies fever/chills, fatigue, IV drug use. Workup in the ED significant for WBC 12.1. CT abdomen/pelvis shows left hip joint effusion and 3.7 cm enhancing right hepatic lobe lesion. Orthopedic surgery was consulted by the ED who recommended admission for arthrocentesis and potential washout. Case discussed with ED provider and decision was made to admit patient for left hip septic arthritis. #Left hip septic arthritis ? Follow-up hip MRI does show moderate left hip joint effusion with edema and inflammation suggestive of septic arthritis. ? Orthopedic surgery following, s/p irrigation and debridement of left hip 04/18/24. Significant purulence drained. Cultures obtained. ? Has been on Vancomycin, cefepime for 5 days. Wound cultures have not showed any growth. - Given wound cultures continue to be negative, there is suspicion of gonococcal septic arthritis. Patient does have risk factors, so will send out GC PCR testing - pending at this time. ? Blood cultures NGTD. - PT/OT consulted, did not recommend further rehab. Recommended rolling walker. - Unfortunately, patient does not have insurance and would not be be able to afford outpatient IV antibiotics. After extensive conversation about the risks of pursuing only oral antibiotics for the next 6 weeks, patient decided to pursue this option. Of note, we have applied for Medicaid - application currently pending approval at this time. - Plan to follow-up with patient once Medicaid is approved and if wound cultures return positive. - Discharged with 6 weeks of clindamycin and cephelexin for emeperic coverage of MRSA and gonoccocal septic arthritis. Referral to infectious diseases provided for [facility]. - Will follow-up with PCP and orthopedic surgery within 2 weeks. #History of DVT - Provoked DVTs while stationary for ~1 month prior to left meniscal tear repair many years ago. - No need for further further anticoagulation at this time, has not been on it for some time. Exam Data for Last 24 hours Vital signs and Labs for Last 24 Hours: Temp Pulse Resp BP Pulse Ox O2 Del Method 97.7 F 57 L 16 143/89 H 96 Room Air 04/21/24 08:00 04/21/24 08:00 04/21/24 08:00 04/21/24 08:00 04/21/24 08:00 04/21/24 11:00 I & O for Last 24 hours: Intake & Output 04/18/24 04/19/24 04/20/24 04/21/24 23:59 23:59 23:59 23:59 Intake Total 2410 / 2410 1260 / 1260 1300 / 1300 1100 / 1100 Output Total 400 / 400 1950 / 1950 525 / 525 200 / 200 Balance 2009 -690 / -690 775 / 775 900 / 900 Weight 81.556 kg 80.739 kg 86.863 kg 86.852 kg Microbiology Reports for the Last 24 Hours: Microbiology 04/16/24 00:21 Blood Blood Culture - Preliminary NO GROWTH AFTER 4 DAYS 04/16/24 23:23 Blood Blood Culture - Preliminary NO GROWTH AFTER 4 DAYS 04/18/24 15:30 Hip,Left - Left Gram Stain - Final 04/18/24 15:30 Hip,Left - Left Surgical Biopsy Culture - Preliminary NO GROWTH AFTER 48 HOURS Constitutional Constitutional: no acute distress *Routine HEENT Exam Head: Present normocephalic Eye: Present EOMI and PERRL ENT: Present mucous membranes moist *Routine Neck Exam Neck: Present supple; Absent lymphadenopathy *Routine Respiratory Exam Respiratory: Present CTA bilaterally *Routine Cardiovascular Exam Cardiovascular: Present RRR *Routine Abdominal Exam Abdominal: Present soft and normoactive bowel sounds; Absent tenderness *Routine Extremities Exam Extremities: Absent cyanosis, clubbing or edema Comments: Left hip incision site CDI. No drainage, and covered with dressing. *Routine Skin Exam Skin: Present warm; Absent rash *Routine Neurological Exam Neurological: Present alert and oriented X3 Results Data Completed and Pending Labs on day of discharge: Preliminary micro results at discharge 04/16/24 00:21 Blood Culture - Preliminary Blood NO GROWTH AFTER 4 DAYS 04/16/24 23:23 Blood Culture - Preliminary Blood NO GROWTH AFTER 4 DAYS 04/18/24 15:30 Surgical Biopsy Culture - Preliminary Hip,Left - Left NO GROWTH AFTER 48 HOURS DS: Diagnosis Discharge Diagnosis (1) Acute pain of left hip: Status: Acute Code(s): M25.552 - Pain in left hip (2) Septic arthritis: Status: Acute Code(s): M00.9 - Pyogenic arthritis, unspecified Qualifiers: Laterality: left Septic arthritis location: hip Meds Home Medications and Allergies Home Medications ?Medication ?Instructions ?Recorded ?Confirmed ?Type cephalexin 500 mg tablet 500 mg PO TID 42 days #126 tabs 04/21/24 04/26/24 Rx clindamycin HCl 150 mg capsule 450 mg (3 x 150 mg) PO TID 42 days 04/21/24 04/26/24 Rx #378 caps New Prescriptions to Start Prescriptions: Mayur Gottlieb clindamycin HCl Mayur Wahl Allergies Allergy/AdvReac Type Severity Reaction Status Date / Time No Known Allergies Allergy Verified 04/26/24 10:17 Discharge Plan Disposition Patient Disposition: Home, Self-Care Discharge Order Discharge Orders: Discharge Order (Routine); Ordered 04/21/24 Ordered By: Mayur Wahl Follow up Plan Follow up with: Dallas Miller DO [Staff Physician] - 05/01/24 10:15 am Fabian Linder DO [Staff Physician] - 04/26/24 10:00 am Prescriptions/Medication Reconciliation: New clindamycin HCl 150 mg capsule 450 mg PO TID 42 Days Qty: 378 0RF cephalexin 500 mg tablet 500 mg PO TID 42 Days Qty: 126 0RF Other Ambulatory Orders: Home Medical Equipment (Routine) Location: None Selected Ordered By: Mayur Wahl Problem Reconciliation Problems Reviewed?: Yes Patient Discharge Instructions Additional Instructions: Please follow-up with infectious disease specialist at [facility] within 1 week. You will need to call to make an appointment. [address] [place] [address] Phone:?[phone] Patient Instructions: DI for Septic Arthritis, DI for Surgical Site Infection, DI for Incision and Drainage Print Language: Citizen [place] Providers Primary Care Provider: Provider,Referral Admit Provider: Juan Alberto Mora Attending Provider: Juan Alberto Mora
--- NOTE | 2024-04-24 10:28 | SW/DCPLANNER ---
called patient 2xs related to hospital discharge and on both calls no answer. Mat LUNA Grey Percher
== END 2024-04-21 13:56 | disposition home or self-care (01) | DRG 482 ==
LOC: ER 22:57 → 2ND 04-17 08:29
PROVIDERS: Orthopaedic Surgery; Student in an Organized Health Care Education/Training Program; Admitting Provider Internal Medicine Adolescent Medicine; Emergency Provider Emergency Medicine; Visit Provider Internal Medicine Adolescent Medicine
PROC: 0S9B3ZX Drainage of Left Hip Joint, Percutaneous Approach, Diagnostic (ICD-10-PCS; principal; 2024-04-17 10:30)
PROC: 0S9B0ZZ Drainage of Left Hip Joint, Open Approach (ICD-10-PCS; principal; 2024-04-18 14:00)
DX: M00.9 Pyogenic arthritis, unspecified (principal); F17.210 Nicotine dependence, cigarettes, uncomplicated; Z86.718 Personal history of other venous thrombosis and embolism
CPT/HCPCS: 20610; 27036; 36415; 73502; 73721; 74177; 76000; 80053; 80202; 81001; 83605; 84550; 85007; 85025; 85651; 86140; 86803; 87040; 87070; 87075; 87205; 87389; 97162; 97165; 99285; J1100; J1171; J1650; J1885; J2250; J2270; J2405; J3010; J7030; Q9967